=== PATIENT | male | born 1965 | race American Indian/Alaskan Native ===

== ENCOUNTER 2018-10-10 14:07 | Emergency (ER) | payer MEDICARE, OTHER ==
--- NOTE | 2018-10-10 14:28 | Emergency Department Report ---
Chief Complaint: Altered Mental Status Stated Complaint: AMS Time Seen by Provider: 10/10/18 14:22 - HPI History of Present Illness: This is a 53 y.o. male that left care home yesterday and not sure where he is. Patient was brought in by EMS wondering the streets. History of schizophrenia and bipolar. - ROS Review of Systems: AMS MSE screening note: Focused history and physical exam performed. Due to findings the following was ordered: Labs Main ED for further evaluation. ED Disposition for MSE Condition: Stable
[2018-10-10 15:20] LABS: Basophils % (Auto) 0.3 % (0.0-1.8); Eosinophils # (Auto) 0.1 K/mm3 (0.0-0.4); Hematocrit 35.3 % (35.5-45.6); Hemoglobin 11.6 gm/dl (11.8-15.2); Lymphocytes # (Auto) 1.5 K/mm3 (1.2-5.4); Lymphocytes % (Auto) 24.1 % (13.4-35.0); Mean Corpuscular HGB Conc 33 % (32-34); Mean Corpuscular Volume 86 fl (84-94); Monocytes # (Auto) 0.6 K/mm3 (0.0-0.8); Monocytes % (Auto) 9.9 % (0.0-7.3); Platelet Count 286 K/mm3 (140-440); Red Blood Count 4.11 M/mm3 (3.65-5.03); Red Cell Distribution Width 14.2 % (13.2-15.2)
[2018-10-10 15:39] LABS: BUN/Creatinine Ratio 10; Blood Urea Nitrogen 9 mg/dL (9-20); Calcium 8.2 mg/dL (8.4-10.2); Hemolysis Index 7
[2018-10-10 18:21] LABS: Bacteria,Urine 4+ /HPF (Negative); Bilirubin,Urine NEG (Negative); Blood,Urine NEG (Negative); Color,Urine Yellow (Yellow); Mucus,Urine FEW /HPF; Sperm,Urine 1+ /HPF (NP)
[2018-10-10 18:22] LABS: Amphetamine Screen,Urine PRESUMPTIVE NEGATIVE; Benzodiazepines Screen,Urine PRESUMPTIVE NEGATIVE; Cannabinoid Screen,Urine PRESUMPTIVE NEGATIVE; Cocaine Screen,Urine PRESUMPTIVE NEGATIVE; Methadone Screen,Urine PRESUMPTIVE NEGATIVE; Opiate Screen,Urine PRESUMPTIVE NEGATIVE
--- NOTE | 2018-10-10 19:17 | Emergency Department Report ---
HPI - General Chief Complaint: Altered Mental Status Time Seen by Provider: 10/10/18 14:22 - HPI HPI: [53 year old AA Male presents to the emergency Department via PD after he was found wandering around a gas station. Apparently the patient wandered away from his shelter earlier today or yesterday. When asked why he left he says that he was going to get help. I asked what he is trying to get help with and the patient says that he is having hallucinations and delusions. He admits to auditory and visual hallucinations but cannot give me any details about them. He denies any suicidal or homicidal ideations. He has a history of schizophrenia and admits to medication noncompliance for a while. ED Past Medical Hx - Past Medical History Hx Psychiatric Treatment: Yes (SCHZOPHENIA AND BIPOLAR) - Surgical History Past Surgical History?: No - Social History Smoking Status: Current Every Day Smoker Substance Use Type: None - Medications Home Medications: Home Medications Medication Instructions Recorded Confirmed Last Taken Type Unobtainable 10/11/18 10/11/18 Unknown History ED Review of Systems ROS: Stated complaint: AMS Other details as noted in HPI Comment: All other systems reviewed and negative Constitutional: denies: chills, fever Eyes: denies: eye pain, vision change ENT: denies: ear pain, throat pain Respiratory: denies: cough, shortness of breath Cardiovascular: denies: chest pain, palpitations Gastrointestinal: denies: abdominal pain, vomiting Genitourinary: denies: dysuria, discharge Musculoskeletal: denies: back pain, arthralgia Skin: denies: rash, lesions Neurological: denies: headache, weakness Psychiatric: auditory hallucinations, visual hallucinations. denies: homicidal thoughts, suicidal thoughts Physical Exam - Physical Exam Vital Signs: Vital Signs 10/10/18 14:23 Temperature 98.0 F Pulse Rate 94 H Respiratory 20 Rate Blood Pressure 104/67 O2 Sat by Pulse 98 Oximetry Physical Exam: GENERAL: The patient is well-developed well-nourished. HEENT: Normocephalic. Atraumatic. Patient has moist mucous membranes. EYES: Extraocular motions are intact. NECK: Supple. Trachea is midline. CHEST/LUNGS: Clear to auscultation. There is no respiratory distress noted. HEART/CARDIOVASCULAR: Regular. There is no tachycardia. There is no obvious murmur. ABDOMEN: Abdomen is soft, nontender. Patient has normal bowel sounds. There is no abdominal distention. SKIN: Skin is warm and dry. NEURO: The patient is awake, alert. The patient has normal speech. MUSCULOSKELETAL: There is no tenderness or deformity. There is no limitation range of motion. There is no evidence of acute injury. PSYCH: Patient is disorganized and has some tangential rambling thoughts. ED Course Vital Signs 10/10/18 14:23 Temperature 98.0 F Pulse Rate 94 H Respiratory 20 Rate Blood Pressure 104/67 O2 Sat by Pulse 98 Oximetry ED Medical Decision Making - Lab Data Result diagrams: 10/10/18 14:46 10/10/18 14:46 - Radiology Data Radiology results: report reviewed PROCEDURE: CT HEAD/BRAIN WO CON HISTORY: AMS FINDINGS: Unenhanced CT of the brain was performed and demonstrates no acute intracranial hemorrhage, extra-axial fluid collection, midline shift or mass effect. The ventricles and basal cisterns are not effaced. No acute infarct is seen. MRI may be considered if patient has persistent symptomatology. The mastoid air cells and middle ears appear clear. There is debris in both external auditory canals. There are old-appearing fractures of the right and left orbital floors. The visualized portion of paranasal sinuses appear clear. IMPRESSION: No acute intracranial hemorrhage This document is electronically signed by Margo Krishna MD., October 10 2018 08:46:24 PM ET Transcribed By: KENDY Dictated By: MARGO KRISHNA MD Electronically Authenticated By: MARGO KRISHNA MD Signed Date/Time: 10/10/182048 - Medical Decision Making When the patient got back to the emergency department he was found in the bathroom completely naked and then trying to expose himself to staff. We were able to get him clothed and into a room. Patient admits to auditory and visual hallucinations but denies any homicidal or suicidal ideations. Labs have been mostly unremarkable except for a mild urinary tract infection for which she will be started on Macrobid. Due to the fact that the patient is so disorganized and was found wandering, I obtained a CT scan of the head without contrast that did not show any bleed, shift, mass, ischemia or any other acute process. The patient has been made at 1013 secondary to what appears to be acute psychosis and appears medically clear for psychiatric placement. - Differential Diagnosis schizophrenia, schizoaffective, bipolar disorder, substance abuse Critical Care Time: No Critical care attestation.: If time is entered above; I have spent that time in minutes in the direct care of this critically ill patient, excluding procedure time. ED Disposition Clinical Impression: Acute psychosis Disposition: DC/TX-65 PSY HOSP/PSY UNIT Is pt being admited?: No Condition: Stable Referrals: RAFIA ELIZABETH MD [Primary Care Provider] - 3-5 Days Time of Disposition: 19:17
[2018-10-10] MEDS: MACROBID PO SCH ×2 (19:26→22:24)
--- NOTE | 2018-10-10 20:48 | Cat Scan Report ---
PROCEDURE: CT HEAD/BRAIN WO CON HISTORY: AMS FINDINGS: Unenhanced CT of the brain was performed and demonstrates no acute intracranial hemorrhage, extra-axial fluid collection, midline shift or mass effect. The ventricles and basal cisterns are no t effaced. No acute infarct is seen. MRI may be considered if patient has persistent symptomatology. The mastoid air cells and middle ears appear clear. There is debris in both external auditory canals. There are old-appearing fractures of the right and left orbital floors. The visualized portion of par anasal sinuses appear clear. IMPRESSION: No acute intracranial hemorrhage This document is electronically signed by Franck Krishna MD., October 10 2018 08:46:24 PM ET
[2018-10-11 09:40] VITALS: BP 122/85
[2018-10-11] MEDS: MACROBID PO SCH (11:05)
== END 2018-10-11 12:40 ==
LOC: ED 14:07
DX: F23 Brief psychotic disorder (principal); R44.0 Auditory hallucinations; R44.1 Visual hallucinations; F31.9 Bipolar disorder, unspecified; F17.200 Nicotine dependence, unspecified, uncomplicated
CPT/HCPCS: 36415; 70450; 80048; 80307; 81001; 85025; 99285; G0480; 80320

== ENCOUNTER 2020-06-06 16:31 | Inpatient (IN) | payer MEDICARE, OTHER ==
[2020-06-07] MEDS: traZODone 50 MG TAB PO SCH ×2 (03:55→21:20)
[2020-06-07] MEDS: MELATONIN 5 MG TAB PO SCH ×2 (03:56→21:20)
--- NOTE | 2020-06-07 07:31 | History and Physical Report ---
GP History & Physical - History of Present Illness Date of admission: 06/07/20 Date of Examination: 06/07/20 Reason for Admission: Danger to self, Impaired reality testing History of Present Illness: HPI Patient is a 55-year-old single without children, currently unemployed on disability income -[place] male who currently resides in a senior care with past psychiatric history of bipolar and schizophrenia who presented from [facility] for acute psychiatric stabilization after being initially admitted for accidental ingestion of rat poison. According to the transfer notes, patient was uncooperative very irritable and has history of aggression. Today patient presents with similar behaviors, refused to take medications, did not want to participate in this initial evaluation, says he jus t want to eat his food and go back to his room, in a very loud tone accompanied by an irritable affect PAST PSYCHIATRIC HISTORY: Diagnoses: Bipolar and schizophrenia Suicide attempts or Self-harm behavior: None reported Prior psychiatric hospitalizations; yes Substance Abuse history: Crack cocaine Previous psychiatric medications tried: Yes Outpatient treatment: No response PAST MEDICAL HISTORY: No significant past medical history Family Psychiatric History: None reported or documented SOCIAL HISTORY Marital Status: Single Living Arrangements: [facility] Employment Status: Unemployed on [employer] Access to guns/weapons: None reported Education: High school History of Abuse: None reported Legal History: None reported REVIEW OF SYSTEMS Constitutional: Negative for weight loss ENT: Negative for stridor Respiratory: Negative for cough or hemoptysis All other systems reviewed and are negative MENTAL STATUS EXAMINATION General Appearance and Behavior: Age appropriate, good hygiene, not wearing appropriate clothes, good eye contact, uncooperative and irritable with questioning. Cooperation: Participating but withdrawn and guarded Psychomotor Behavior: Psychomotor agitation Mood: Good Affect and affective range: euthymic, euphoric, irritable Thought Process:Circumstantial, Illogical, Thought Content: Flight of ideas, Illogical, Grandiose, Speech: pressured, loud volume at times Intellectual Functioning: Average Suicidal Ideation: Denies SI Homicidal Ideation: Denies HIl Impulse Control: Impaired Insight and Judgment: Limited insight and judgment Memory: Normal, Attention: Divided attention impaired Orientation: Alert, oriented, Assessment and Plan - Psychiatric problem (1) Schizoaffective disorder, bipolar type Current Visit: Yes Status: Acute Treatment Plan Resume home medications, Risperdal increased to 2 mg twice daily Patient admitted for inpatient psychiatric evaluation, medication adjustment and close monitoring The patient's behavior, mood, sleep and appetite will be closely monitored. Patient enrolled in individual and group therapeutic sessions and encouraged to attend. Patient provided with a safe and structured environment. Patient's physical health needs will be addressed by the Hospitalist. Hospitalist Consulted Labs including CBC, CMP, Lipid profile and Hemoglobin A1C levels ordered for baseline reference Social Assessment will be completed and the Ceramic Chemist will work with patient and family to ensure a suitable and safe disposition Medication adjustment will be made as clinically indicated Usual Wellness Mandaeism/Preservation: - Start Trazodone 50 mg po QHS & 50 mg po QHS PRN between 10 PM & 2 AM for insomnia - Start Melatonin 5 mg po QHS to promote circadian rhythm - Start [place]-3 for brain health, reduce impulsivity, and as adjunctive treatment for mood disorder, continue upon discharge given overall benefits. - Start B1 prophylaxis with 200 mg po for 5 days The patient agreed on the treatment plan, understood the risk, benefit, alternative treatment, potential consequence of no treatment, and gave informed consent. Initial Certification Inpatient psych services: I certify that the inpatient psychiatric services are required for treatment that could reasonably be expected to improve the patient's condition. Estimated days: 7 Post hospital care: primary care provider, psychiatric provider Legal Status: Voluntary Patient Problems: Current Active Problems Schizoaffective disorder, bipolar type (Acute) Reaction to Hospitalization: Accepting Medications and Allergies Allergies Allergy/AdvReac Type Severity Reaction Status Date / Time No Known Allergies Allergy Unverified 06/06/20 16:55 Home Medications Medication Instructions Recorded Confirmed Last Taken Type Depakote Dr 1,000 mg PO HS 06/07/20 06/07/[address] 500 mg PO DAILY 06/07/20 06/07/20 Unknown History Melatonin 3 mg PO HS 06/07/20 06/07/20 Unknown History Prozac 20 mg PO DAILY 06/07/20 06/07/20 Unknown History RisperDAL 2 mg PO HS 06/07/20 06/07/20 Unknown History Active Meds: Active Medications Melatonin (Melatonin) 5 mg PO QHS [facility] Last Admin: 06/07/20 03:56 Dose: Not Given Documented by: Trazodone HCl (Desyrel) 50 mg PO QHS [facility] Last Admin: 06/07/20 03:55 Dose: Not Given Documented by: Ziprasidone (Geodon) 10 mg IM BID [facility] Stop: 06/07/20 22:01 Results - Results Labs/Vitals: Laboratory Last Values POC Glucose 93 mg/dL (70-105) 06/07/20 03:46 Last Vital Signs Temp 97.7 F 06/07/20 03:54 Pulse 66 06/07/20 03:54 Resp 20 06/07/20 03:54 BP 117/77 06/07/20 03:54 Pulse Ox 99 06/07/20 03:54 Physical Examination - Constitutional Vitals: Vital Signs Temp Pulse Resp BP Pulse Ox 97.7 F 66 20 117/77 99 06/07/20 03:54 06/07/20 03:54 06/07/20 03:54 06/07/20 03:54 06/07/20 03:54 Temperature -Last 24 Hours Temperature 97.7 F Mental Status Exam - Vital signs Last Vital Signs Temp 97.7 F 06/07/20 03:54 Pulse 66 06/07/20 03:54 Resp 20 06/07/20 03:54 BP 117/77 06/07/20 03:54 Pulse Ox 99 06/07/20 03:54 Assessment and Plan - Psychiatric problem (1) Schizoaffective disorder, bipolar type Current Visit: Yes Status: Acute Physician Certification - Certification Statement Physician Certification Statement: This is an acknowledgement statement that MIGUEL ÁNGEL ULLOA is a 55 year old M who requires inpatient psychiatric admission for treatment which could reasonably be expected to improve the patient's condition for Estimated period of time patient will need to remain in the hospital: [ ] Plan for post-hospital care: [ ]
[2020-06-07] MEDS ORDERED: LORazepam 2 MG/ML VIAL IM PRN (07:54)
[2020-06-07] MEDS ORDERED: ZIPRASIDONE MESYLATE 20 MG VIAL IM PRN (07:54)
[2020-06-07] MEDS ORDERED: WATER FOR INJ Sterile (PF) 10 ML ONE (09:54)
[2020-06-07] MEDS ORDERED: ZIPRASIDONE MESYLATE 20 MG VIAL IM SCH (10:00)
--- NOTE | 2020-06-07 12:12 | Consultation ---
History of Present Illness - Reason for Consult Consult date: 06/06/20 Requesting physician: EULOGIO MONDRAGON - History of Present Illness 55 YO Male with Nicotine Dependence, Bipolar Disorder, Schizophrenia admitted to [facility] for Psychiatric stabilization. Consult placed by Dr. Mondragon for medical management. Patient seen and evaluated in the recreation room. Patient resting comfortably. Patient denies fever, chills, chest pain, palpitations, productive cough, skin rash, recent ill contacts, or known exposure to COVID-19. No reported nursing events. Past History Past Medical History: other (See HPI) Past Surgical History: No surgical history Social history: single, smoking Family history: no significant family history (Reviewed) Medications and Allergies Allergies Allergy/AdvReac Type Severity Reaction Status Date / Time No Known Allergies Allergy Unverified 06/06/20 16:55 Home Medications Medication Instructions Recorded Confirmed Last Taken Type Depakote Dr 1,000 mg PO HS 06/07/20 06/07/[address] 500 mg PO DAILY 06/07/20 06/07/20 Unknown History Melatonin 3 mg PO HS 06/07/20 06/07/20 Unknown History Prozac 20 mg PO DAILY 06/07/20 06/07/20 Unknown History RisperDAL 2 mg PO HS 06/07/20 06/07/20 Unknown History Active Meds: Active Medications Divalproex Sodium (Depakote Dr) 500 mg PO BID [facility] Fluoxetine HCl (Prozac) 20 mg PO DAILY [facility] Lorazepam (Ativan) 2 mg IM Q4HR PRN PRN Reason: Agitation Last Admin: 06/07/20 10:38 Dose: 2 mg Documented by: Melatonin (Melatonin) 5 mg PO QHS [facility] Last Admin: 06/07/20 03:56 Dose: Not Given Documented by: Risperidone (Risperdal) 2 mg PO BID [facility] Trazodone HCl (Desyrel) 50 mg PO QHS [facility] Last Admin: 06/07/20 03:55 Dose: Not Given Documented by: Ziprasidone (Geodon) 15 mg IM Q4H PRN PRN Reason: Agitation Last Admin: 06/07/20 10:37 Dose: 15 mg Documented by: Review of Systems Constitutional: no weight loss, no weight gain, no fever, no chills Ears, nose, mouth and throat: no ear pain, no ear discharge, no tinnitis, no decreased hearing, no nose pain Cardiovascular: no chest pain, no orthopnea, no palpitations, no rapid/irregular heart beat Respiratory: no cough, no cough with sputum, no excessive sputum, no hemoptysis Gastrointestinal: no nausea, no vomiting, no diarrhea, no constipation, no change in bowel habits Genitourinary Male: no hematuria, no flank pain, no discharge, no urinary frequency, no urinary hesitancy Rectal: no pain, no incontinence Musculoskeletal: no neck stiffness, no shooting arm pain, no arm numbness/tingling, no low back pain Integumentary: no rash, no pruritis, no redness, no sores, no wounds Neurological: no head injury, no transient paralysis, no paralysis, no parathesias, no tingling Psychiatric: no anxiety, no change in appetite, no suicidal ideation Endocrine: no cold intolerance, no heat intolerance, no excessive thirst, no polydipsia Hematologic/Lymphatic: no easy bruising, no easy bleeding Allergic/Immunologic: no urticaria, no wheezing Exam - Constitutional Vitals: Temp Pulse Resp BP Pulse Ox 97.9 F 74 18 110/76 98 06/07/20 08:52 06/07/20 08:52 06/07/20 08:52 06/07/20 11:23 06/07/20 08:52 General appearance: Present: no acute distress, well-nourished - EENT Eyes: Present: PERRL ENT: hearing intact, clear oral mucosa - Neck Neck: Present: supple, normal ROM - Respiratory Respiratory effort: normal Respiratory: bilateral: CTA - Cardiovascular Heart Sounds: Present: S1 & S2. Absent: rub, click - Extremities Extremities: pulses symmetrical, No edema Peripheral Pulses: within normal limits - Abdominal General gastrointestinal: Present: soft, non-tender, non-distended, normal bowel sounds Male genitourinary: Present: normal - Integumentary Integumentary: Present: clear, warm, dry - Musculoskeletal Musculoskeletal: gait normal, strength equal bilaterally - Psychiatric Psychiatric: cooperative - Neurologic Neurologic: CNII-XII intact, moves all extremities Assessment and Plan - Patient Problems (1) Schizoaffective disorder, bipolar type Current Visit: Yes Status: Acute Plan to address problem: Supportive care, continue current management, cognitive behavioral therapy. As per primary team (2) Nicotine dependence Current Visit: Yes Status: Acute Qualifiers: Nicotine product type: cigarettes Substance use status: in withdrawal Qualified Code(s): F17.213 - Nicotine dependence, cigarettes, with withdrawal Plan to address problem: Smoking cessation counseling, supportive care, behavior change counseling, +15 minutes.
[2020-06-07] MEDS: FLUoxetine 20 MG CAP PO SCH (17:04)
[2020-06-07] MEDS: risperiDONE 1 MG TAB PO SCH ×2 (17:05→21:20)
[2020-06-07] MEDS: DIVALPROEX DR 500 MG TAB PO SCH ×2 (17:06→21:20)
[2020-06-08 06:07] LABS: Basophils % (Auto) 0.4 % (0.0-1.8); Eosinophils # (Auto) 0.1 K/mm3 (0.0-0.4); Eosinophils % (Auto) 1.8 % (0.0-4.3); Hematocrit 38.1 % (35.5-45.6); Hemoglobin 12.6 gm/dl (11.8-15.2); Lymphocytes # (Auto) 2.5 K/mm3 (1.2-5.4); Mean Corpuscular HGB Conc 33 % (32-34); Mean Corpuscular Volume 86 fl (84-94); Monocytes # (Auto) 0.3 K/mm3 (0.0-0.8); Monocytes % (Auto) 5.8 % (0.0-7.3); Platelet Count 170 K/mm3 (140-440); Red Blood Count 4.45 M/mm3 (3.65-5.03)
[2020-06-08 06:16] LABS: Alanine Aminotransferase 13 units/L (7-56); Albumin 3.7 g/dL (3.9-5); BUN/Creatinine Ratio 9; Blood Urea Nitrogen 9 mg/dL (9-20); Calcium 9.2 mg/dL (8.4-10.2); Chol/HDL Ratio 2.84 %; HDL Cholesterol 50 mg/dL (40-59); Hemolysis Index 5; LDL Cholesterol,Direct 89 mg/dL (50-130)
--- NOTE | 2020-06-08 07:38 | Progress Note ---
Subjective Date of service: 06/08/20 Principal diagnosis: Schizoaffective disorder, bipolar type Subjective Comment: Psych Nurse: [id number] Pt. rested on the recliner in the activity room for about 4hrs, awake and , ate his dinner, coherent and took his po meds of which the PA to the Psychiatrist was are. He said if the pt agrees to take his meds later today to give to the pt. Pt. frequently asking for cookies and ice cream. Pt was educated on the importance of eating healthy. Pt. pleasant, he said "thank you, you are a very nice person" commending this repairer typewriter. Pt. reminder of fall precaution. Will continue to monitor. Psych Progress: Mr Velazco seen this AM in room, improved cooperation and reduced irritablity noted. Patient reports doing fine, says he has been compliant with his medications, apologized for yesterday. Endorses a good night rest, stable appetite and denies any suicidal thoughts at this moment. Reason to continue inpatient psychiatric hospitalization: Patient had to be given PRN meds due to initial aggression on presentation yesterday, today he is medication compliant, will continue to observe for mood stability. REVIEW OF SYSTEMS Constitutional: Negative for weight loss ENT: Negative for stridor Respiratory: Negative for cough or hemoptysis All other systems reviewed and are negative MENTAL STATUS EXAMINATION General Appearance and Behavior: Age appropriate, good hygiene, not wearing appropriate clothes, good eye contact, cooperative and polite with questioning. Cooperation: Participating/engaged Psychomotor Behavior: Psychomotor normal Mood: Good Affect and affective range: congruent with mood Thought Process:logical Thought Content: within reality Speech: pressured, loud volume at times Intellectual Functioning: Average Suicidal Ideation: Denies SI Homicidal Ideation: Denies HIl Impulse Control: Impaired Insight and Judgment: Limited insight and judgment Memory: Normal, Attention: attention intact Orientation: Alert, oriented, Assessment and Plan - Psychiatric problem (1) Schizoaffective disorder, bipolar type Current Visit: Yes Status: Acute Treatment Plan Continue current medication regimen Patient admitted for inpatient psychiatric evaluation, medication adjustment and close monitoring The patient's behavior, mood, sleep and appetite will be closely monitored. Patient enrolled in individual and group therapeutic sessions and encouraged to attend. Patient provided with a safe and structured environment. Patient's physical health needs will be addressed by the Hospitalist. Hospitalist Consulted Labs including CBC, CMP, Lipid profile and Hemoglobin A1C levels ordered for baseline reference Social Assessment will be completed and the Regulatory Scientist will work with patient and family to ensure a suitable and safe disposition Medication adjustment will be made as clinically indicated Usual Wellness Hindu/Preservation: - Start Trazodone 50 mg po QHS & 50 mg po QHS PRN between 10 PM & 2 AM for insomnia - Start Melatonin 5 mg po QHS to promote circadian rhythm - Start [place]-3 for brain health, reduce impulsivity, and as adjunctive treatment for mood disorder, continue upon discharge given overall benefits. - Start B1 prophylaxis with 200 mg po for 5 days The patient agreed on the treatment plan, understood the risk, benefit, alternative treatment, potential consequence of no treatment, and gave informed consent. Initial Certification Inpatient psych services: I certify that the inpatient psychiatric services are required for treatment that could reasonably be expected to improve the patient's condition. Estimated days 6 Post hospital care: primary care provider, psychiatric provider Assessment and Plan - Patient Problems (1) Schizoaffective disorder, bipolar type Current Visit: Yes Status: Acute Medications and Allergies Allergies Allergy/AdvReac Type Severity Reaction Status Date / Time No Known Allergies Allergy Unverified 06/06/20 16:55 Home Medications Medication Instructions Recorded Confirmed Last Taken Type Depakote Dr 1,000 mg PO HS 06/07/20 06/07/[address] 500 mg PO DAILY 06/07/20 06/07/20 Unknown History Melatonin 3 mg PO HS 06/07/20 06/07/20 Unknown History Prozac 20 mg PO DAILY 06/07/20 06/07/20 Unknown History RisperDAL 2 mg PO HS 06/07/20 06/07/20 Unknown History Active Meds: Active Medications Divalproex Sodium (Depakote Dr) 500 mg PO BID [facility] Last Admin: 06/07/20 21:20 Dose: 500 mg Documented by: Fluoxetine HCl (Prozac) 20 mg PO DAILY [facility] Last Admin: 06/07/20 17:04 Dose: 20 mg Documented by: Lorazepam (Ativan) 2 mg IM Q4HR PRN PRN Reason: Agitation Last Admin: 06/07/20 10:38 Dose: 2 mg Documented by: Melatonin (Melatonin) 5 mg PO QHS [facility] Last Admin: 06/07/20 21:20 Dose: 5 mg Documented by: Risperidone (Risperdal) 2 mg PO BID [facility] Last Admin: 06/07/20 21:20 Dose: 2 mg Documented by: Trazodone HCl (Desyrel) 50 mg PO QHS [facility] Last Admin: 06/07/20 21:20 Dose: 50 mg Documented by: Ziprasidone (Geodon) 15 mg IM Q4H PRN PRN Reason: Agitation Last Admin: 06/07/20 10:37 Dose: 15 mg Documented by: Results - Results Labs/Vitals: Laboratory Last Values WBC 6.1 K/mm3 (4.5-11.0) 06/08/20 05:45 RBC 4.45 M/mm3 (3.65-5.03) 06/08/20 05:45 Hgb 12.6 gm/dl (11.8-15.2) 06/08/20 05:45 Hct 38.1 % (35.5-45.6) 06/08/20 05:45 MCV 86 fl (84-94) 06/08/20 05:45 MCH 28 pg (28-32) 06/08/20 05:45 MCHC 33 % (32-34) 06/08/20 05:45 RDW 14.0 % (13.2-15.2) 06/08/20 05:45 Plt Count 170 K/mm3 (140-440) 06/08/20 05:45 Lymph % (Auto) 41.0 % (13.4-35.0) H 06/08/20 05:45 [place] % (Auto) 5.8 % (0.0-7.3) 06/08/20 05:45 Eos % (Auto) 1.8 % (0.0-4.3) 06/08/20 05:45 Baso % (Auto) 0.4 % (0.0-1.8) 06/08/20 05:45 Lymph # (Auto) 2.5 K/mm3 (1.2-5.4) 06/08/20 05:45 [place] # (Auto) 0.3 K/mm3 (0.0-0.8) 06/08/20 05:45 Eos # (Auto) 0.1 K/mm3 (0.0-0.4) 06/08/20 05:45 Baso # (Auto) 0.0 K/mm3 (0.0-0.1) 06/08/20 05:45 Seg Neutrophils % 51.0 % (40.0-70.0) 06/08/20 05:45 Seg Neutrophils # 3.1 K/mm3 (1.8-7.7) 06/08/20 05:45 Sodium 141 mmol/L (137-145) 06/08/20 05:45 Potassium 4.4 mmol/L (3.6-5.0) 06/08/20 05:45 Chloride 104.9 mmol/L (98-107) 06/08/20 05:45 Carbon Dioxide 27 mmol/L (22-30) 06/08/20 05:45 Anion Gap 14 mmol/L 06/08/20 05:45 BUN 9 mg/dL (9-20) 06/08/20 05:45 Creatinine 1.0 mg/dL (0.8-1.3) 06/08/20 05:45 Estimated GFR > 60 ml/min 06/08/20 05:45 BUN/Creatinine Ratio 9 % 06/08/20 05:45 Glucose 93 mg/dL (75-100) 06/08/20 05:45 POC Glucose 93 mg/dL (70-105) 06/07/20 03:46 Calcium 9.2 mg/dL (8.4-10.2) 06/08/20 05:45 Total Bilirubin < 0.20 mg/dL (0.1-1.2) 06/08/20 05:45 AST 14 units/L (5-40) 06/08/20 05:45 ALT 13 units/L (7-56) 06/08/20 05:45 Alkaline Phosphatase 62 units/L (35-129) 06/08/20 05:45 Total Protein 6.2 g/dL (6.3-8.2) L 06/08/20 05:45 Albumin 3.7 g/dL (3.9-5) L 06/08/20 05:45 Albumin/Globulin Ratio 1.5 % 06/08/20 05:45 Triglycerides 72 mg/dL (2-149) 06/08/20 05:45 Cholesterol 142 mg/dL (50-199) 06/08/20 05:45 LDL Cholesterol Direct 89 mg/dL (50-130) 06/08/20 05:45 HDL Cholesterol 50 mg/dL (40-59) 06/08/20 05:45 Cholesterol/HDL Ratio 2.84 % 06/08/20 05:45 TSH 1.590 mlU/mL (0.270-4.200) 06/08/20 05:45 Last Vital Signs Temp 97.6 F 06/07/20 22:00 Pulse 97 H 06/07/20 22:00 Resp 16 06/07/20 22:00 BP 98/66 06/07/20 22:00 Pulse Ox 99 06/07/20 22:00
[2020-06-08] MEDS: DIVALPROEX DR 500 MG TAB PO SCH ×2 (11:20→21:15)
[2020-06-08] MEDS: risperiDONE 1 MG TAB PO SCH ×2 (11:20→21:15)
[2020-06-08] MEDS: FLUoxetine 20 MG CAP PO SCH (11:20)
[2020-06-08] MEDS: MELATONIN 5 MG TAB PO SCH (21:15)
[2020-06-08] MEDS: traZODone 50 MG TAB PO SCH (21:15)
--- NOTE | 2020-06-09 07:39 | Progress Note ---
Subjective Date of service: 06/09/20 Principal diagnosis: Schizoaffective disorder, bipolar type Subjective Comment: Psych Nurse: pt spent his evening in bed resting, out of room to the activity room for snack, pt is alert and oriented x3, calm and cooperative, able to make needs known, no outburst, medication compliant, good appetite,denies SI/HI, denies A/V/H, no complaints voiced, no distress noted, will continue to monitor for safety. Psych Progress: Patient seen this AM, reports goood sleep, denies SI, HI and AVH. Medication compliant Reason to continue inpatient psychiatric hospitalization: No behavioral disturbances reported, medication compliant, will continue to observe for mood stability and plan for safety discharge. REVIEW OF SYSTEMS Constitutional: Negative for weight loss ENT: Negative for stridor Respiratory: Negative for cough or hemoptysis All other systems reviewed and are negative MENTAL STATUS EXAMINATION General Appearance and Behavior: Age appropriate, good hygiene, not wearing appropriate clothes, good eye contact, cooperative and polite with questioning. Cooperation: Participating/engaged Psychomotor Behavior: Psychomotor normal Mood: Good Affect and affective range: congruent with mood Thought Process:logical Thought Content: within reality Speech: regular rate and rythm Intellectual Functioning: Average Suicidal Ideation: Denies SI Homicidal Ideation: Denies HIl Impulse Control: Impaired Insight and Judgment: Limited insight and judgment Memory: Normal, Attention: attention intact Orientation: Alert, oriented, Assessment and Plan - Psychiatric problem (1) Schizoaffective disorder, bipolar type Current Visit: Yes Status: Acute Treatment Plan Continue current medication regimen Patient admitted for inpatient psychiatric evaluation, medication adjustment and close monitoring The patient's behavior, mood, sleep and appetite will be closely monitored. Patient enrolled in individual and group therapeutic sessions and encouraged to attend. Patient provided with a safe and structured environment. Patient's physical health needs will be addressed by the Hospitalist. Hospitalist Consulted Labs including CBC, CMP, Lipid profile and Hemoglobin A1C levels ordered for baseline reference Social Assessment will be completed and the Remnants Cutter will work with patient and family to ensure a suitable and safe disposition Medication adjustment will be made as clinically indicated Usual Wellness Presybeterian/Preservation: - Start Trazodone 50 mg po QHS & 50 mg po QHS PRN between 10 PM & 2 AM for insomnia - Start Melatonin 5 mg po QHS to promote circadian rhythm - Start [place]-3 for brain health, reduce impulsivity, and as adjunctive treatment for mood disorder, continue upon discharge given overall benefits. - Start B1 prophylaxis with 200 mg po for 5 days The patient agreed on the treatment plan, understood the risk, benefit, alternative treatment, potential consequence of no treatment, and gave informed consent. Initial Certification Inpatient psych services: I certify that the inpatient psychiatric services are required for treatment that could reasonably be expected to improve the patient's condition. Estimated days 6 Post hospital care: primary care provider, psychiatric provider Assessment and Plan - Patient Problems (1) Schizoaffective disorder, bipolar type Current Visit: Yes Status: Acute Medications and Allergies Allergies Allergy/AdvReac Type Severity Reaction Status Date / Time No Known Allergies Allergy Unverified 06/06/20 16:55 Home Medications Medication Instructions Recorded Confirmed Last Taken Type Depakote Dr 1,000 mg PO 06/07/20 06/07/[address] 500 mg PO DAILY 06/07/20 06/07/20 Unknown History Melatonin 3 mg PO HS 06/07/20 06/07/20 Unknown History Prozac 20 mg PO DAILY 06/07/20 06/07/20 Unknown History RisperDAL 2 mg PO HS 06/07/20 06/07/20 Unknown History Active Meds: Active Medications Divalproex Sodium (Depakote Dr) 500 mg PO BID [facility] Last Admin: 06/08/20 21:15 Dose: 500 mg Documented by: Fluoxetine HCl (Prozac) 20 mg PO DAILY [facility] Last Admin: 06/08/20 11:20 Dose: 20 mg Documented by: Lorazepam (Ativan) 2 mg IM Q4HR PRN PRN Reason: Agitation Last Admin: 06/07/20 10:38 Dose: 2 mg Documented by: Melatonin (Melatonin) 5 mg PO QHS [facility] Last Admin: 06/08/20 21:15 Dose: 5 mg Documented by: Risperidone (Risperdal) 2 mg PO BID [facility] Last Admin: 06/08/20 21:15 Dose: 2 mg Documented by: Trazodone HCl (Desyrel) 50 mg PO QHS [facility] Last Admin: 06/08/20 21:15 Dose: 50 mg Documented by: Ziprasidone (Geodon) 15 mg IM Q4H PRN PRN Reason: Agitation Last Admin: 06/07/20 10:37 Dose: 15 mg Documented by: Results - Results Labs/Vitals: Laboratory Last Values WBC 6.1 K/mm3 (4.5-11.0) 06/08/20 05:45 RBC 4.45 M/mm3 (3.65-5.03) 06/08/20 05:45 Hgb 12.6 gm/dl (11.8-15.2) 06/08/20 05:45 Hct 38.1 % (35.5-45.6) 06/08/20 05:45 MCV 86 fl (84-94) 06/08/20 05:45 MCH 28 pg (28-32) 06/08/20 05:45 MCHC 33 % (32-34) 06/08/20 05:45 RDW 14.0 % (13.2-15.2) 06/08/20 05:45 Plt Count 170 K/mm3 (140-440) 06/08/20 05:45 Lymph % (Auto) 41.0 % (13.4-35.0) H 06/08/20 05:45 [place] % (Auto) 5.8 % (0.0-7.3) 06/08/20 05:45 Eos % (Auto) 1.8 % (0.0-4.3) 06/08/20 05:45 Baso % (Auto) 0.4 % (0.0-1.8) 06/08/20 05:45 Lymph # (Auto) 2.5 K/mm3 (1.2-5.4) 06/08/20 05:45 [place] # (Auto) 0.3 K/mm3 (0.0-0.8) 06/08/20 05:45 Eos # (Auto) 0.1 K/mm3 (0.0-0.4) 06/08/20 05:45 Baso # (Auto) 0.0 K/mm3 (0.0-0.1) 06/08/20 05:45 Seg Neutrophils % 51.0 % (40.0-70.0) 06/08/20 05:45 Seg Neutrophils # 3.1 K/mm3 (1.8-7.7) 06/08/20 05:45 Sodium 141 mmol/L (137-145) 06/08/20 05:45 Potassium 4.4 mmol/L (3.6-5.0) 06/08/20 05:45 Chloride 104.9 mmol/L (98-107) 06/08/20 05:45 Carbon Dioxide 27 mmol/L (22-30) 06/08/20 05:45 Anion Gap 14 mmol/L 06/08/20 05:45 BUN 9 mg/dL (9-20) 06/08/20 05:45 Creatinine 1.0 mg/dL (0.8-1.3) 06/08/20 05:45 Estimated GFR > 60 ml/min 06/08/20 05:45 BUN/Creatinine Ratio 9 % 06/08/20 05:45 Glucose 93 mg/dL (75-100) 06/08/20 05:45 POC Glucose 93 mg/dL (70-105) 06/07/20 03:46 Calcium 9.2 mg/dL (8.4-10.2) 06/08/20 05:45 Total Bilirubin < 0.20 mg/dL (0.1-1.2) 06/08/20 05:45 AST 14 units/L (5-40) 06/08/20 05:45 ALT 13 units/L (7-56) 06/08/20 05:45 Alkaline Phosphatase 62 units/L (35-129) 06/08/20 05:45 Total Protein 6.2 g/dL (6.3-8.2) L 06/08/20 05:45 Albumin 3.7 g/dL (3.9-5) L 06/08/20 05:45 Albumin/Globulin Ratio 1.5 % 06/08/20 05:45 Triglycerides 72 mg/dL (2-149) 06/08/20 05:45 Cholesterol 142 mg/dL (50-199) 06/08/20 05:45 LDL Cholesterol Direct 89 mg/dL (50-130) 06/08/20 05:45 HDL Cholesterol 50 mg/dL (40-59) 06/08/20 05:45 Cholesterol/HDL Ratio 2.84 % 06/08/20 05:45 TSH 1.590 mlU/mL (0.270-4.200) 06/08/20 05:45 Last Vital Signs Temp 97.7 F 06/08/20 22:00 Pulse 80 06/08/20 22:00 Resp 18 06/08/20 22:00 BP 101/63 06/08/20 22:00 Pulse Ox 98 06/08/20 22:00
[2020-06-09] MEDS: FLUoxetine 20 MG CAP PO SCH (09:31)
[2020-06-09] MEDS: risperiDONE 1 MG TAB PO SCH ×2 (09:31→21:15)
[2020-06-09] MEDS: DIVALPROEX DR 500 MG TAB PO SCH ×2 (09:31→21:15)
[2020-06-09] MEDS: traZODone 50 MG TAB PO SCH (21:15)
[2020-06-09] MEDS: MELATONIN 5 MG TAB PO SCH (21:15)
[2020-06-10] MEDS: DIVALPROEX DR 500 MG TAB PO SCH ×2 (09:35→21:17)
[2020-06-10] MEDS: risperiDONE 1 MG TAB PO SCH ×2 (09:35→21:16)
[2020-06-10] MEDS ORDERED: FLUoxetine 10 MG TAB PO SCH (10:00)
--- NOTE | 2020-06-10 11:26 | Progress Note ---
Subjective Date of service: 06/10/20 Principal diagnosis: Schizoaffective disorder, bipolar type Subjective Comment: During my interview with the patient today, he is a/o x 2. He says he is "depressed." He makes poor eye contact. The patient denies SI/HI, but it's unclear if the patient is being forthcoming. He first tells me that "he was trying to kill" himself. He then says "it was an accident." Reason for continued inpatient treatment: The patient continues to be depressed and had a recent suicidal attempt. The patient appears to be not forthcoming if he currently feels that way. REVIEW OF SYSTEMS Constitutional: Negative for weight loss ENT: Negative for stridor Respiratory: Negative for cough or hemoptysis All other systems reviewed and are negative MENTAL STATUS EXAMINATION General Appearance and Behavior: Age appropriate, good hygiene, not wearing appropriate clothes, poor eye contact, cooperative and polite with questioning. Cooperation: Participating/engaged Psychomotor Behavior: Psychomotor normal Mood: "depressed" Affect and affective range: congruent with mood Thought Process:logical Thought Content: within reality Speech: regular rate and rhythm Intellectual Functioning: Average Suicidal Ideation: Denies, possibly not forthcoming Homicidal Ideation: Denies HIl Impulse Control: Impaired Insight and Judgment: Limited insight and judgment Memory: Normal, Attention: attention intact Orientation: Alert, oriented, Assessment and Plan (1) Schizoaffective disorder, bipolar type Current Visit: Yes Status: Acute Treatment Plan Patient admitted for inpatient psychiatric evaluation, medication adjustment and close monitoring The patient's behavior, mood, sleep and appetite will be closely monitored. Patient enrolled in individual and group therapeutic sessions and encouraged to attend. Patient provided with a safe and structured environment. Patient's physical health needs will be addressed by the Hospitalist. Hospitalist Consulted Labs including CBC, CMP, Lipid profile and Hemoglobin A1C levels ordered for baseline reference Social Assessment will be completed and the Billing Manager will work with patient and family to ensure a suitable and safe disposition Medication adjustment will be made as clinically indicated Increased Prozac 30mg po daily Usual Wellness Alevism/Preservation: - Start Trazodone 50 mg po QHS & 50 mg po QHS PRN between 10 PM & 2 AM for insomnia - Start Melatonin 5 mg po QHS to promote circadian rhythm - Start [place]-3 for brain health, reduce impulsivity, and as adjunctive treatment for mood disorder, continue upon discharge given overall benefits. - Start B1 prophylaxis with 200 mg po for 5 days The patient agreed on the treatment plan, understood the risk, benefit, alternative treatment, potential consequence of no treatment, and gave informed consent. Estimated days: 4 Post hospital care: primary care provider, psychiatric provider Medications and Allergies Allergies Allergy/AdvReac Type Severity Reaction Status Date / Time No Known Allergies Allergy Unverified 06/06/20 16:55 Home Medications Medication Instructions Recorded Confirmed Last Taken Type Depakote Dr 1,000 mg PO HS 06/07/20 06/07/[address] 500 mg PO DAILY 06/07/20 06/07/20 Unknown History Melatonin 3 mg PO HS 06/07/20 06/07/20 Unknown History Prozac 20 mg PO DAILY 06/07/20 06/07/20 Unknown History RisperDAL 2 mg PO HS 06/07/20 06/07/20 Unknown History Active Meds: Active Medications Divalproex Sodium (Depakote Dr) 500 mg PO BID [facility] Last Admin: 06/10/20 09:35 Dose: 500 mg Documented by: Fluoxetine HCl (Prozac) 30 mg PO QDAY [facility] Last Admin: 06/10/20 09:38 Dose: 30 mg Documented by: Lorazepam (Ativan) 2 mg IM Q4HR PRN PRN Reason: Agitation Last Admin: 06/07/20 10:38 Dose: 2 mg Documented by: Melatonin (Melatonin) 5 mg PO QHS [facility] Last Admin: 06/09/20 21:15 Dose: 5 mg Documented by: Risperidone (Risperdal) 2 mg PO BID [facility] Last Admin: 06/10/20 09:35 Dose: 2 mg Documented by: Trazodone HCl (Desyrel) 50 mg PO QHS [facility] Last Admin: 06/09/20 21:15 Dose: 50 mg Documented by: Ziprasidone (Geodon) 15 mg IM Q4H PRN PRN Reason: Agitation Last Admin: 06/07/20 10:37 Dose: 15 mg Documented by: Results - Results Labs/Vitals: Laboratory Last Values WBC 6.1 K/mm3 (4.5-11.0) 06/08/20 05:45 RBC 4.45 M/mm3 (3.65-5.03) 06/08/20 05:45 Hgb 12.6 gm/dl (11.8-15.2) 06/08/20 05:45 Hct 38.1 % (35.5-45.6) 06/08/20 05:45 MCV 86 fl (84-94) 06/08/20 05:45 MCH 28 pg (28-32) 06/08/20 05:45 MCHC 33 % (32-34) 06/08/20 05:45 RDW 14.0 % (13.2-15.2) 06/08/20 05:45 Plt Count 170 K/mm3 (140-440) 06/08/20 05:45 Lymph % (Auto) 41.0 % (13.4-35.0) H 06/08/20 05:45 [place] % (Auto) 5.8 % (0.0-7.3) 06/08/20 05:45 Eos % (Auto) 1.8 % (0.0-4.3) 06/08/20 05:45 Baso % (Auto) 0.4 % (0.0-1.8) 06/08/20 05:45 Lymph # (Auto) 2.5 K/mm3 (1.2-5.4) 06/08/20 05:45 [place] # (Auto) 0.3 K/mm3 (0.0-0.8) 06/08/20 05:45 Eos # (Auto) 0.1 K/mm3 (0.0-0.4) 06/08/20 05:45 Baso # (Auto) 0.0 K/mm3 (0.0-0.1) 06/08/20 05:45 Seg Neutrophils % 51.0 % (40.0-70.0) 06/08/20 05:45 Seg Neutrophils # 3.1 K/mm3 (1.8-7.7) 06/08/20 05:45 Sodium 141 mmol/L (137-145) 06/08/20 05:45 Potassium 4.4 mmol/L (3.6-5.0) 06/08/20 05:45 Chloride 104.9 mmol/L (98-107) 06/08/20 05:45 Carbon Dioxide 27 mmol/L (22-30) 06/08/20 05:45 Anion Gap 14 mmol/L 06/08/20 05:45 BUN 9 mg/dL (9-20) 06/08/20 05:45 Creatinine 1.0 mg/dL (0.8-1.3) 06/08/20 05:45 Estimated GFR > 60 ml/min 06/08/20 05:45 BUN/Creatinine Ratio 9 % 06/08/20 05:45 Glucose 93 mg/dL (75-100) 06/08/20 05:45 POC Glucose 93 mg/dL (70-105) 06/07/20 03:46 Calcium 9.2 mg/dL (8.4-10.2) 06/08/20 05:45 Total Bilirubin < 0.20 mg/dL (0.1-1.2) 06/08/20 05:45 AST 14 units/L (5-40) 06/08/20 05:45 ALT 13 units/L (7-56) 06/08/20 05:45 Alkaline Phosphatase 62 units/L (35-129) 06/08/20 05:45 Total Protein 6.2 g/dL (6.3-8.2) L 06/08/20 05:45 Albumin 3.7 g/dL (3.9-5) L 06/08/20 05:45 Albumin/Globulin Ratio 1.5 % 06/08/20 05:45 Triglycerides 72 mg/dL (2-149) 06/08/20 05:45 Cholesterol 142 mg/dL (50-199) 06/08/20 05:45 LDL Cholesterol Direct 89 mg/dL (50-130) 06/08/20 05:45 HDL Cholesterol 50 mg/dL (40-59) 06/08/20 05:45 Cholesterol/HDL Ratio 2.84 % 06/08/20 05:45 TSH 1.590 mlU/mL (0.270-4.200) 06/08/20 05:45 Last Vital Signs Temp 98.1 F 06/10/20 06:53 Pulse 76 06/10/20 06:53 Resp 16 06/10/20 06:53 BP 104/65 06/10/20 06:53 Pulse Ox 95 06/10/20 06:53
[2020-06-10] MEDS: traZODone 50 MG TAB PO SCH (21:16)
[2020-06-10] MEDS: MELATONIN 5 MG TAB PO SCH (21:17)
--- NOTE | 2020-06-11 09:08 | Progress Note ---
Subjective Date of service: 06/11/20 Principal diagnosis: Schizoaffective disorder, bipolar type Subjective Comment: During my interview with the patient today, he is a/o x 2. He says he is "depressed." He makes poor eye contact. The patient denies SI/HI. He says he thought "the rat poison was candy." It's not clear how forthcoming he is. He denies hallucinations of any kind. Reason for continued inpatient treatment: The patient continues to be depressed and had a recent suicidal attempt. The patient appears to be not forthcoming if he currently feels that way. REVIEW OF SYSTEMS Constitutional: Negative for weight loss ENT: Negative for stridor Respiratory: Negative for cough or hemoptysis All other systems reviewed and are negative MENTAL STATUS EXAMINATION General Appearance and Behavior: Age appropriate, good hygiene, not wearing appropriate clothes, poor eye contact, cooperative and polite with questioning. Cooperation: Participating/engaged Psychomotor Behavior: Psychomotor normal Mood: "depressed" Affect and affective range: congruent with mood Thought Process:logical Thought Content: within reality Speech: regular rate and rhythm Intellectual Functioning: Average Suicidal Ideation: Denies, possibly not forthcoming Homicidal Ideation: Denies HIl Impulse Control: Impaired Insight and Judgment: Limited insight and judgment Memory: Normal, Attention: attention intact Orientation: Alert, oriented, Assessment and Plan (1) Schizoaffective disorder, bipolar type Current Visit: Yes Status: Acute Treatment Plan Patient admitted for inpatient psychiatric evaluation, medication adjustment and close monitoring The patient's behavior, mood, sleep and appetite will be closely monitored. Patient enrolled in individual and group therapeutic sessions and encouraged to attend. Patient provided with a safe and structured environment. Patient's physical health needs will be addressed by the Hospitalist. Hospitalist Consulted Labs including CBC, CMP, Lipid profile and Hemoglobin A1C levels ordered for baseline reference Social Assessment will be completed and the Stacker Operator will work with patient and family to ensure a suitable and safe disposition Medication adjustment will be made as clinically indicated Increased Prozac 40mg po daily Usual Wellness Yarsani/Preservation: - Start Trazodone 50 mg po QHS & 50 mg po QHS PRN between 10 PM & 2 AM for insomnia - Start Melatonin 5 mg po QHS to promote circadian rhythm - Start [place]-3 for brain health, reduce impulsivity, and as adjunctive treatment for mood disorder, continue upon discharge given overall benefits. - Start B1 prophylaxis with 200 mg po for 5 days The patient agreed on the treatment plan, understood the risk, benefit, alternative treatment, potential consequence of no treatment, and gave informed consent. Estimated days: 3 Post hospital care: primary care provider, psychiatric provider Medications and Allergies Allergies Allergy/AdvReac Type Severity Reaction Status Date / Time No Known Allergies Allergy Unverified 06/06/20 16:55 Home Medications Medication Instructions Recorded Confirmed Last Taken Type Depakote Dr 1,000 mg PO HS 06/07/20 06/07/[address] 500 mg PO DAILY 06/07/20 06/07/20 Unknown History Melatonin 3 mg PO HS 06/07/20 06/07/20 Unknown History Prozac 20 mg PO DAILY 06/07/20 06/07/20 Unknown History RisperDAL 2 mg PO HS 06/07/20 06/07/20 Unknown History Active Meds: Active Medications Divalproex Sodium (Depakote Dr) 500 mg PO BID [facility] Last Admin: 06/10/20 21:17 Dose: 500 mg Documented by: Fluoxetine HCl (Prozac) 30 mg PO QDAY [facility] Last Admin: 06/10/20 09:38 Dose: 30 mg Documented by: Lorazepam (Ativan) 2 mg IM Q4HR PRN PRN Reason: Agitation Last Admin: 06/07/20 10:38 Dose: 2 mg Documented by: Melatonin (Melatonin) 5 mg PO QHS [facility] Last Admin: 06/10/20 21:17 Dose: 5 mg Documented by: Risperidone (Risperdal) 2 mg PO BID [facility] Last Admin: 06/10/20 21:16 Dose: 2 mg Documented by: Trazodone HCl (Desyrel) 50 mg PO QHS [facility] Last Admin: 06/10/20 21:16 Dose: 50 mg Documented by: Ziprasidone (Geodon) 15 mg IM Q4H PRN PRN Reason: Agitation Last Admin: 06/07/20 10:37 Dose: 15 mg Documented by: Results - Results Labs/Vitals: Laboratory Last Values WBC 6.1 K/mm3 (4.5-11.0) 06/08/20 05:45 RBC 4.45 M/mm3 (3.65-5.03) 06/08/20 05:45 Hgb 12.6 gm/dl (11.8-15.2) 06/08/20 05:45 Hct 38.1 % (35.5-45.6) 06/08/20 05:45 MCV 86 fl (84-94) 06/08/20 05:45 MCH 28 pg (28-32) 06/08/20 05:45 MCHC 33 % (32-34) 06/08/20 05:45 RDW 14.0 % (13.2-15.2) 06/08/20 05:45 Plt Count 170 K/mm3 (140-440) 06/08/20 05:45 Lymph % (Auto) 41.0 % (13.4-35.0) H 06/08/20 05:45 [place] % (Auto) 5.8 % (0.0-7.3) 06/08/20 05:45 Eos % (Auto) 1.8 % (0.0-4.3) 06/08/20 05:45 Baso % (Auto) 0.4 % (0.0-1.8) 06/08/20 05:45 Lymph # (Auto) 2.5 K/mm3 (1.2-5.4) 06/08/20 05:45 [place] # (Auto) 0.3 K/mm3 (0.0-0.8) 06/08/20 05:45 Eos # (Auto) 0.1 K/mm3 (0.0-0.4) 06/08/20 05:45 Baso # (Auto) 0.0 K/mm3 (0.0-0.1) 06/08/20 05:45 Seg Neutrophils % 51.0 % (40.0-70.0) 06/08/20 05:45 Seg Neutrophils # 3.1 K/mm3 (1.8-7.7) 06/08/20 05:45 Sodium 141 mmol/L (137-145) 06/08/20 05:45 Potassium 4.4 mmol/L (3.6-5.0) 06/08/20 05:45 Chloride 104.9 mmol/L (98-107) 06/08/20 05:45 Carbon Dioxide 27 mmol/L (22-30) 06/08/20 05:45 Anion Gap 14 mmol/L 06/08/20 05:45 BUN 9 mg/dL (9-20) 06/08/20 05:45 Creatinine 1.0 mg/dL (0.8-1.3) 06/08/20 05:45 Estimated GFR > 60 ml/min 06/08/20 05:45 BUN/Creatinine Ratio 9 % 06/08/20 05:45 Glucose 93 mg/dL (75-100) 06/08/20 05:45 POC Glucose 93 mg/dL (70-105) 06/07/20 03:46 Calcium 9.2 mg/dL (8.4-10.2) 06/08/20 05:45 Total Bilirubin < 0.20 mg/dL (0.1-1.2) 06/08/20 05:45 AST 14 units/L (5-40) 06/08/20 05:45 ALT 13 units/L (7-56) 06/08/20 05:45 Alkaline Phosphatase 62 units/L (35-129) 06/08/20 05:45 Total Protein 6.2 g/dL (6.3-8.2) L 06/08/20 05:45 Albumin 3.7 g/dL (3.9-5) L 06/08/20 05:45 Albumin/Globulin Ratio 1.5 % 06/08/20 05:45 Triglycerides 72 mg/dL (2-149) 06/08/20 05:45 Cholesterol 142 mg/dL (50-199) 06/08/20 05:45 LDL Cholesterol Direct 89 mg/dL (50-130) 06/08/20 05:45 HDL Cholesterol 50 mg/dL (40-59) 06/08/20 05:45 Cholesterol/HDL Ratio 2.84 % 06/08/20 05:45 TSH 1.590 mlU/mL (0.270-4.200) 06/08/20 05:45 Last Vital Signs Temp 98.5 F 06/10/20 19:21 Pulse 87 06/10/20 19:21 Resp 18 06/10/20 19:21 BP 102/66 06/10/20 19:21 Pulse Ox 96 06/10/20 19:21
[2020-06-11] MEDS: DIVALPROEX DR 500 MG TAB PO SCH ×2 (09:40→21:18)
[2020-06-11] MEDS: FLUoxetine 20 MG CAP PO SCH (09:42)
[2020-06-11] MEDS: risperiDONE 1 MG TAB PO SCH ×2 (09:42→21:18)
[2020-06-11] MEDS: traZODone 50 MG TAB PO SCH (21:18)
[2020-06-11] MEDS: MELATONIN 5 MG TAB PO SCH (21:19)
--- NOTE | 2020-06-12 09:28 | Progress Note ---
Subjective Date of service: 06/12/20 Principal diagnosis: Schizoaffective disorder, bipolar type Subjective Comment: During my interview with the patient today, he is a/o x 2. He says he's doing "alright." The patient says he "slept good." He denies SI/HI at present. He also denies any hallucinations of any kind. Reason for continued inpatient treatment: The had a recent suicidal attempt. Will continue to treat and stabilize to ensue a safe discharge. REVIEW OF SYSTEMS Constitutional: Negative for weight loss ENT: Negative for stridor Respiratory: Negative for cough or hemoptysis All other systems reviewed and are negative MENTAL STATUS EXAMINATION General Appearance and Behavior: Age appropriate, good hygiene, not wearing appropriate clothes, poor eye contact, cooperative and polite with questioning. Cooperation: Participating/engaged Psychomotor Behavior: Psychomotor normal Mood: "alright" Affect and affective range: congruent with mood Thought Process: logical Thought Content: within reality Speech: regular rate and rhythm Intellectual Functioning: Average Suicidal Ideation: Denies, possibly not forthcoming Homicidal Ideation: Denies HIl Impulse Control: Impaired Insight and Judgment: Limited insight and judgment Memory: Normal, Attention: attention intact Orientation: Alert, oriented, Assessment and Plan (1) Schizoaffective disorder, bipolar type Current Visit: Yes Status: Acute Treatment Plan Patient admitted for inpatient psychiatric evaluation, medication adjustment and close monitoring The patient's behavior, mood, sleep and appetite will be closely monitored. Patient enrolled in individual and group therapeutic sessions and encouraged to attend. Patient provided with a safe and structured environment. Patient's physical health needs will be addressed by the Hospitalist. Hospitalist Consulted Labs including CBC, CMP, Lipid profile and Hemoglobin A1C levels ordered for baseline reference Social Assessment will be completed and the Real Estate Services Coordinator will work with patient and family to ensure a suitable and safe disposition Medication adjustment will be made as clinically indicated Increased Prozac 40mg po daily yesterday No changes today Usual Wellness Jew/Preservation: - Start Trazodone 50 mg po QHS & 50 mg po QHS PRN between 10 PM & 2 AM for insomnia - Start Melatonin 5 mg po QHS to promote circadian rhythm - Start [place]-3 for brain health, reduce impulsivity, and as adjunctive treatment for mood disorder, continue upon discharge given overall benefits. - Start B1 prophylaxis with 200 mg po for 5 days The patient agreed on the treatment plan, understood the risk, benefit, alternative treatment, potential consequence of no treatment, and gave informed consent. Estimated days: 3 Post hospital care: primary care provider, psychiatric provider Medications and Allergies Allergies Allergy/AdvReac Type Severity Reaction Status Date / Time No Known Allergies Allergy Unverified 06/06/20 16:55 Home Medications Medication Instructions Recorded Confirmed Last Taken Type Depakote Dr 1,000 mg PO HS 06/07/20 06/07/[address] 500 mg PO DAILY 06/07/20 06/07/20 Unknown History Melatonin 3 mg PO HS 06/07/20 06/07/20 Unknown History Prozac 20 mg PO DAILY 06/07/20 06/07/20 Unknown History RisperDAL 2 mg PO HS 06/07/20 06/07/20 Unknown History Active Meds: Active Medications Divalproex Sodium (Depakote Dr) 500 mg PO BID [facility] Last Admin: 06/11/20 21:18 Dose: 500 mg Documented by: Fluoxetine HCl (Prozac) 40 mg PO QDAY [facility] Last Admin: 06/11/20 09:42 Dose: 40 mg Documented by: Lorazepam (Ativan) 2 mg IM Q4HR PRN PRN Reason: Agitation Last Admin: 06/07/20 10:38 Dose: 2 mg Documented by: Melatonin (Melatonin) 5 mg PO QHS [facility] Last Admin: 06/11/20 21:19 Dose: 5 mg Documented by: Risperidone (Risperdal) 2 mg PO BID [facility] Last Admin: 06/11/20 21:18 Dose: 2 mg Documented by: Trazodone HCl (Desyrel) 50 mg PO QHS [facility] Last Admin: 06/11/20 21:18 Dose: 50 mg Documented by: Ziprasidone (Geodon) 15 mg IM Q4H PRN PRN Reason: Agitation Last Admin: 06/07/20 10:37 Dose: 15 mg Documented by: Results - Results Labs/Vitals: Laboratory Last Values WBC 6.1 K/mm3 (4.5-11.0) 06/08/20 05:45 RBC 4.45 M/mm3 (3.65-5.03) 06/08/20 05:45 Hgb 12.6 gm/dl (11.8-15.2) 06/08/20 05:45 Hct 38.1 % (35.5-45.6) 06/08/20 05:45 MCV 86 fl (84-94) 06/08/20 05:45 MCH 28 pg (28-32) 06/08/20 05:45 MCHC 33 % (32-34) 06/08/20 05:45 RDW 14.0 % (13.2-15.2) 06/08/20 05:45 Plt Count 170 K/mm3 (140-440) 06/08/20 05:45 Lymph % (Auto) 41.0 % (13.4-35.0) H 06/08/20 05:45 [place] % (Auto) 5.8 % (0.0-7.3) 06/08/20 05:45 Eos % (Auto) 1.8 % (0.0-4.3) 06/08/20 05:45 Baso % (Auto) 0.4 % (0.0-1.8) 06/08/20 05:45 Lymph # (Auto) 2.5 K/mm3 (1.2-5.4) 06/08/20 05:45 [place] # (Auto) 0.3 K/mm3 (0.0-0.8) 06/08/20 05:45 Eos # (Auto) 0.1 K/mm3 (0.0-0.4) 06/08/20 05:45 Baso # (Auto) 0.0 K/mm3 (0.0-0.1) 06/08/20 05:45 Seg Neutrophils % 51.0 % (40.0-70.0) 06/08/20 05:45 Seg Neutrophils # 3.1 K/mm3 (1.8-7.7) 06/08/20 05:45 Sodium 141 mmol/L (137-145) 06/08/20 05:45 Potassium 4.4 mmol/L (3.6-5.0) 06/08/20 05:45 Chloride 104.9 mmol/L (98-107) 06/08/20 05:45 Carbon Dioxide 27 mmol/L (22-30) 06/08/20 05:45 Anion Gap 14 mmol/L 06/08/20 05:45 BUN 9 mg/dL (9-20) 06/08/20 05:45 Creatinine 1.0 mg/dL (0.8-1.3) 06/08/20 05:45 Estimated GFR > 60 ml/min 06/08/20 05:45 BUN/Creatinine Ratio 9 % 06/08/20 05:45 Glucose 93 mg/dL (75-100) 06/08/20 05:45 POC Glucose 93 mg/dL (70-105) 06/07/20 03:46 Calcium 9.2 mg/dL (8.4-10.2) 06/08/20 05:45 Total Bilirubin < 0.20 mg/dL (0.1-1.2) 06/08/20 05:45 AST 14 units/L (5-40) 06/08/20 05:45 ALT 13 units/L (7-56) 06/08/20 05:45 Alkaline Phosphatase 62 units/L (35-129) 06/08/20 05:45 Total Protein 6.2 g/dL (6.3-8.2) L 06/08/20 05:45 Albumin 3.7 g/dL (3.9-5) L 06/08/20 05:45 Albumin/Globulin Ratio 1.5 % 06/08/20 05:45 Triglycerides 72 mg/dL (2-149) 06/08/20 05:45 Cholesterol 142 mg/dL (50-199) 06/08/20 05:45 LDL Cholesterol Direct 89 mg/dL (50-130) 06/08/20 05:45 HDL Cholesterol 50 mg/dL (40-59) 06/08/20 05:45 Cholesterol/HDL Ratio 2.84 % 06/08/20 05:45 TSH 1.590 mlU/mL (0.270-4.200) 06/08/20 05:45 Last Vital Signs Temp 98.0 F 06/11/20 19:33 Pulse 60 06/11/20 19:33 Resp 16 06/11/20 19:33 BP 116/72 06/11/20 19:33 Pulse Ox 95 06/11/20 19:33
[2020-06-12] MEDS: FLUoxetine 20 MG CAP PO SCH (10:28)
[2020-06-12] MEDS: risperiDONE 1 MG TAB PO SCH ×2 (10:28→21:08)
[2020-06-12] MEDS: DIVALPROEX DR 500 MG TAB PO SCH ×2 (10:28→21:08)
--- NOTE | 2020-06-12 17:27 | Progress Note ---
Assessment and Plan - Patient Problems (1) Schizoaffective disorder, bipolar type Current Visit: Yes Status: Acute Plan to address problem: Supportive care, continue current management, cognitive behavioral therapy. As per primary team (2) Nicotine dependence Current Visit: Yes Status: Acute Qualifiers: Nicotine product type: cigarettes Substance use status: in withdrawal Qualified Code(s): F17.213 - Nicotine dependence, cigarettes, with withdrawal Plan to address problem: Smoking cessation counseling, supportive care, behavior change counseling, +15 minutes. History Interval history: 55 YO Male with Nicotine Dependence, Bipolar Disorder, Schizophrenia admitted to [facility] for Psychiatric stabilization. Patient seen and evaluated in the recreation room. Patient resting comfortably. Patient denies fever, ch ills, chest pain. No reported nursing events. Hospitalist Physical - Constitutional Vitals: Temp Pulse Resp BP Pulse Ox 98.0 F 60 16 116/72 95 06/11/20 19:33 06/11/20 19:33 06/11/20 19:33 06/11/20 19:33 06/11/20 19:33 General appearance: Present: no acute distress, well-nourished - EENT Eyes: Present: PERRL, EOM intact - Neck Neck: Present: supple - Respiratory Respiratory: bilateral: CTA - Cardiovascular Rhythm: regular Heart Sounds: Present: S1 & S2 - Extremities Extremities: no ischemia Peripheral Pulses: within normal limits - Abdominal General gastrointestinal: soft, non-tender, non-distended - Integumentary Integumentary: Present: clear, dry - Psychiatric Psychiatric: cooperative - Neurologic Neurologic: CNII-XII intact Results - Labs CBC & Chem 7: 06/08/20 05:45 06/08/20 05:45 Labs: Laboratory Last Values WBC 6.1 K/mm3 (4.5-11.0) 06/08/20 05:45 RBC 4.45 M/mm3 (3.65-5.03) 06/08/20 05:45 Hgb 12.6 gm/dl (11.8-15.2) 06/08/20 05:45 Hct 38.1 % (35.5-45.6) 06/08/20 05:45 MCV 86 fl (84-94) 06/08/20 05:45 MCH 28 pg (28-32) 06/08/20 05:45 MCHC 33 % (32-34) 06/08/20 05:45 RDW 14.0 % (13.2-15.2) 06/08/20 05:45 Plt Count 170 K/mm3 (140-440) 06/08/20 05:45 Lymph % (Auto) 41.0 % (13.4-35.0) H 06/08/20 05:45 [place] % (Auto) 5.8 % (0.0-7.3) 06/08/20 05:45 Eos % (Auto) 1.8 % (0.0-4.3) 06/08/20 05:45 Baso % (Auto) 0.4 % (0.0-1.8) 06/08/20 05:45 Lymph # (Auto) 2.5 K/mm3 (1.2-5.4) 06/08/20 05:45 [place] # (Auto) 0.3 K/mm3 (0.0-0.8) 06/08/20 05:45 Eos # (Auto) 0.1 K/mm3 (0.0-0.4) 06/08/20 05:45 Baso # (Auto) 0.0 K/mm3 (0.0-0.1) 06/08/20 05:45 Seg Neutrophils % 51.0 % (40.0-70.0) 06/08/20 05:45 Seg Neutrophils # 3.1 K/mm3 (1.8-7.7) 06/08/20 05:45 Sodium 141 mmol/L (137-145) 06/08/20 05:45 Potassium 4.4 mmol/L (3.6-5.0) 06/08/20 05:45 Chloride 104.9 mmol/L (98-107) 06/08/20 05:45 Carbon Dioxide 27 mmol/L (22-30) 06/08/20 05:45 Anion Gap 14 mmol/L 06/08/20 05:45 BUN 9 mg/dL (9-20) 06/08/20 05:45 Creatinine 1.0 mg/dL (0.8-1.3) 06/08/20 05:45 Estimated GFR > 60 ml/min 06/08/20 05:45 BUN/Creatinine Ratio 9 % 06/08/20 05:45 Glucose 93 mg/dL (75-100) 06/08/20 05:45 POC Glucose 93 mg/dL (70-105) 06/07/20 03:46 Calcium 9.2 mg/dL (8.4-10.2) 06/08/20 05:45 Total Bilirubin < 0.20 mg/dL (0.1-1.2) 06/08/20 05:45 AST 14 units/L (5-40) 06/08/20 05:45 ALT 13 units/L (7-56) 06/08/20 05:45 Alkaline Phosphatase 62 units/L (35-129) 06/08/20 05:45 Total Protein 6.2 g/dL (6.3-8.2) L 06/08/20 05:45 Albumin 3.7 g/dL (3.9-5) L 06/08/20 05:45 Albumin/Globulin Ratio 1.5 % 06/08/20 05:45 Triglycerides 72 mg/dL (2-149) 06/08/20 05:45 Cholesterol 142 mg/dL (50-199) 06/08/20 05:45 LDL Cholesterol Direct 89 mg/dL (50-130) 06/08/20 05:45 HDL Cholesterol 50 mg/dL (40-59) 06/08/20 05:45 Cholesterol/HDL Ratio 2.84 % 06/08/20 05:45 TSH 1.590 mlU/mL (0.270-4.200) 06/08/20 05:45 Valproic Acid 75.8 ug/mL (50-100) 06/12/20 10:40 [place]/IV: Voiding Method Toilet Active Medications - Current Medications Current Medications: Generic Name Dose Route Start Last Admin Trade Name Freq PRN Reason Stop Dose Admin Divalproex Sodium 500 mg 06/07/20 10:00 06/12/20 10:[address] PO 500 mg BID [facility] Administration Fluoxetine HCl 40 mg 06/11/20 10:00 06/12/20 10:28 Prozac PO 40 mg QDAY [facility] Administration Lorazepam 2 mg 06/07/20 07:54 06/07/20 10:38 Ativan IM 2 mg Q4HR PRN Administration Agitation Melatonin 5 mg 06/06/20 22:00 06/11/20 21:19 Melatonin PO 5 mg QHS [facility] Administration Risperidone 2 mg 06/07/20 10:00 06/12/20 10:28 Risperdal PO 2 mg BID [facility] Administration Trazodone HCl 50 mg 06/06/20 22:00 06/11/20 21:18 Desyrel PO 50 mg QHS [facility] Administration Ziprasidone 15 mg 06/07/20 07:54 06/07/20 10:37 Geodon IM 15 mg Q4H PRN Administration Agitation
[2020-06-12] MEDS: traZODone 50 MG TAB PO SCH (21:08)
[2020-06-12] MEDS: MELATONIN 5 MG TAB PO SCH (21:08)
[2020-06-13] MEDS: risperiDONE 1 MG TAB PO SCH ×2 (09:37→22:50)
[2020-06-13] MEDS: FLUoxetine 20 MG CAP PO SCH (09:37)
[2020-06-13] MEDS: DIVALPROEX DR 500 MG TAB PO SCH ×2 (09:38→22:50)
--- NOTE | 2020-06-13 12:33 | Progress Note ---
Subjective Date of service: 06/13/20 Principal diagnosis: Schizoaffective disorder, bipolar type Subjective Comment: During my interview with the patient today, he is a/o x 3. He says he's doing "better." The patient says he "slept good." He denies SI/HI at present. He also denies any hallucinations of any kind. Reason for continued inpatient treatment: The patient has improved significantly. He is awaiting placement to ensue a safe discharge. REVIEW OF SYSTEMS Constitutional: Negative for weight loss ENT: Negative for stridor Respiratory: Negative for cough or hemoptysis All other systems reviewed and are negative MENTAL STATUS EXAMINATION General Appearance and Behavior: Age appropriate, good hygiene, not wearing appropriate clothes, poor eye contact, cooperative and polite with questioning. Cooperation: Participating/engaged Psychomotor Behavior: Psychomotor normal Mood: "alright" Affect and affective range: congruent with mood Thought Process: logical Thought Content: within reality Speech: regular rate and rhythm Intellectual Functioning: Average Suicidal Ideation: Denies, possibly not forthcoming Homicidal Ideation: Denies HIl Impulse Control: Impaired Insight and Judgment: Limited insight and judgment Memory: Normal, Attention: attention intact Orientation: Alert, oriented, Assessment and Plan (1) Schizoaffective disorder, bipolar type Current Visit: Yes Status: Acute Treatment Plan Patient admitted for inpatient psychiatric evaluation, medication adjustment and close monitoring The patient's behavior, mood, sleep and appetite will be closely monitored. Patient enrolled in individual and group therapeutic sessions and encouraged to attend. Patient provided with a safe and structured environment. Patient's physical health needs will be addressed by the Hospitalist. Hospitalist Consulted Labs including CBC, CMP, Lipid profile and Hemoglobin A1C levels ordered for baseline reference Social Assessment will be completed and the Photoresist Contact Printer will work with patient and family to ensure a suitable and safe disposition Medication adjustment will be made as clinically indicated No changes today Usual Wellness Buddhist/Preservation: - Start Trazodone 50 mg po QHS & 50 mg po QHS PRN between 10 PM & 2 AM for insomnia - Start Melatonin 5 mg po QHS to promote circadian rhythm - Start [place]-3 for brain health, reduce impulsivity, and as adjunctive treatment for mood disorder, continue upon discharge given overall benefits. - Start B1 prophylaxis with 200 mg po for 5 days The patient agreed on the treatment plan, understood the risk, benefit, alternative treatment, potential consequence of no treatment, and gave informed consent. Estimated days: 3 Post hospital care: primary care provider, psychiatric provider Medications and Allergies Allergies Allergy/AdvReac Type Severity Reaction Status Date / Time No Known Allergies Allergy Unverified 06/06/20 16:55 Home Medications Medication Instructions Recorded Confirmed Last Taken Type Depakote Dr 1,000 mg PO HS 06/07/20 06/07/[address] 500 mg PO DAILY 06/07/20 06/07/20 Unknown History Melatonin 3 mg PO HS 06/07/20 06/07/20 Unknown History Prozac 20 mg PO DAILY 06/07/20 06/07/20 Unknown History RisperDAL 2 mg PO HS 06/07/20 06/07/20 Unknown History Active Meds: Active Medications Divalproex Sodium (Depakote Dr) 500 mg PO BID [facility] Last Admin: 06/13/20 09:38 Dose: 500 mg Documented by: Fluoxetine HCl (Prozac) 40 mg PO QDAY [facility] Last Admin: 06/13/20 09:37 Dose: 40 mg Documented by: Lorazepam (Ativan) 2 mg IM Q4HR PRN PRN Reason: Agitation Last Admin: 06/07/20 10:38 Dose: 2 mg Documented by: Melatonin (Melatonin) 5 mg PO QHS [facility] Last Admin: 06/12/20 21:08 Dose: 5 mg Documented by: Risperidone (Risperdal) 2 mg PO BID [facility] Last Admin: 06/13/20 09:37 Dose: 2 mg Documented by: Trazodone HCl (Desyrel) 50 mg PO QHS [facility] Last Admin: 06/12/20 21:08 Dose: 50 mg Documented by: Ziprasidone (Geodon) 15 mg IM Q4H PRN PRN Reason: Agitation Last Admin: 06/07/20 10:37 Dose: 15 mg Documented by: Results - Results Labs/Vitals: Laboratory Last Values WBC 6.1 K/mm3 (4.5-11.0) 06/08/20 05:45 RBC 4.45 M/mm3 (3.65-5.03) 06/08/20 05:45 Hgb 12.6 gm/dl (11.8-15.2) 06/08/20 05:45 Hct 38.1 % (35.5-45.6) 06/08/20 05:45 MCV 86 fl (84-94) 06/08/20 05:45 MCH 28 pg (28-32) 06/08/20 05:45 MCHC 33 % (32-34) 06/08/20 05:45 RDW 14.0 % (13.2-15.2) 06/08/20 05:45 Plt Count 170 K/mm3 (140-440) 06/08/20 05:45 Lymph % (Auto) 41.0 % (13.4-35.0) H 06/08/20 05:45 [place] % (Auto) 5.8 % (0.0-7.3) 06/08/20 05:45 Eos % (Auto) 1.8 % (0.0-4.3) 06/08/20 05:45 Baso % (Auto) 0.4 % (0.0-1.8) 06/08/20 05:45 Lymph # (Auto) 2.5 K/mm3 (1.2-5.4) 06/08/20 05:45 [place] # (Auto) 0.3 K/mm3 (0.0-0.8) 06/08/20 05:45 Eos # (Auto) 0.1 K/mm3 (0.0-0.4) 06/08/20 05:45 Baso # (Auto) 0.0 K/mm3 (0.0-0.1) 06/08/20 05:45 Seg Neutrophils % 51.0 % (40.0-70.0) 06/08/20 05:45 Seg Neutrophils # 3.1 K/mm3 (1.8-7.7) 06/08/20 05:45 Sodium 141 mmol/L (137-145) 06/08/20 05:45 Potassium 4.4 mmol/L (3.6-5.0) 06/08/20 05:45 Chloride 104.9 mmol/L (98-107) 06/08/20 05:45 Carbon Dioxide 27 mmol/L (22-30) 06/08/20 05:45 Anion Gap 14 mmol/L 06/08/20 05:45 BUN 9 mg/dL (9-20) 06/08/20 05:45 Creatinine 1.0 mg/dL (0.8-1.3) 06/08/20 05:45 Estimated GFR > 60 ml/min 06/08/20 05:45 BUN/Creatinine Ratio 9 % 06/08/20 05:45 Glucose 93 mg/dL (75-100) 06/08/20 05:45 POC Glucose 93 mg/dL (70-105) 06/07/20 03:46 Calcium 9.2 mg/dL (8.4-10.2) 06/08/20 05:45 Total Bilirubin < 0.20 mg/dL (0.1-1.2) 06/08/20 05:45 AST 14 units/L (5-40) 06/08/20 05:45 ALT 13 units/L (7-56) 06/08/20 05:45 Alkaline Phosphatase 62 units/L (35-129) 06/08/20 05:45 Total Protein 6.2 g/dL (6.3-8.2) L 06/08/20 05:45 Albumin 3.7 g/dL (3.9-5) L 06/08/20 05:45 Albumin/Globulin Ratio 1.5 % 06/08/20 05:45 Triglycerides 72 mg/dL (2-149) 06/08/20 05:45 Cholesterol 142 mg/dL (50-199) 06/08/20 05:45 LDL Cholesterol Direct 89 mg/dL (50-130) 06/08/20 05:45 HDL Cholesterol 50 mg/dL (40-59) 06/08/20 05:45 Cholesterol/HDL Ratio 2.84 % 06/08/20 05:45 TSH 1.590 mlU/mL (0.270-4.200) 06/08/20 05:45 Valproic Acid 75.8 ug/mL (50-100) 06/12/20 10:40 Last Vital Signs Temp 97.5 F L 06/13/20 09:32 Pulse 76 06/13/20 09:32 Resp 18 06/13/20 09:32 BP 94/58 06/13/20 09:32 Pulse Ox 96 06/13/20 09:32
[2020-06-13] MEDS: MELATONIN 5 MG TAB PO SCH (22:50)
[2020-06-13] MEDS: traZODone 50 MG TAB PO SCH (22:50)
[2020-06-14] MEDS: FLUoxetine 20 MG CAP PO SCH (09:37)
[2020-06-14] MEDS: DIVALPROEX DR 500 MG TAB PO SCH ×2 (09:38→22:17)
[2020-06-14] MEDS: risperiDONE 1 MG TAB PO SCH ×2 (09:38→22:18)
--- NOTE | 2020-06-14 11:29 | Progress Note ---
Subjective Date of service: 06/14/20 Principal diagnosis: Schizoaffective disorder, bipolar type Subjective Comment: During my interview with the patient today, he is a/o x 3. He is sitting in the dayroom awake. He says he's doing "alright." The patient says he "slept good." He denies SI/HI at present. He also denies any hallucinations of any kind. Reason for continued inpatient treatment: The patient has improved significantly. He is awaiting placement to ensue a safe discharge. REVIEW OF SYSTEMS Constitutional: Negative for weight loss ENT: Negative for stridor Respiratory: Negative for cough or hemoptysis All other systems reviewed and are negative MENTAL STATUS EXAMINATION General Appearance and Behavior: Age appropriate, good hygiene, not wearing appropriate clothes, poor eye contact, cooperative and polite with questioning. Cooperation: Participating/engaged Psychomotor Behavior: Psychomotor normal Mood: "alright" Affect and affective range: congruent with mood Thought Process: logical Thought Content: within reality Speech: regular rate and rhythm Intellectual Functioning: Average Suicidal Ideation: Denies, possibly not forthcoming Homicidal Ideation: Denies HIl Impulse Control: Impaired Insight and Judgment: Limited insight and judgment Memory: Normal, Attention: attention intact Orientation: Alert, oriented, Assessment and Plan (1) Schizoaffective disorder, bipolar type Current Visit: Yes Status: Acute Treatment Plan Patient admitted for inpatient psychiatric evaluation, medication adjustment and close monitoring The patient's behavior, mood, sleep and appetite will be closely monitored. Patient enrolled in individual and group therapeutic sessions and encouraged to attend. Patient provided with a safe and structured environment. Patient's physical health needs will be addressed by the Hospitalist. Hospitalist Consulted Labs including CBC, CMP, Lipid profile and Hemoglobin A1C levels ordered for baseline reference Social Assessment will be completed and the [facility] will work with patient and family to ensure a suitable and safe disposition Medication adjustment will be made as clinically indicated No changes today Usual Wellness Druze/Preservation: - Start Trazodone 50 mg po QHS & 50 mg po QHS PRN between 10 PM & 2 AM for insomnia - Start Melatonin 5 mg po QHS to promote circadian rhythm - Start [place]-3 for brain health, reduce impulsivity, and as adjunctive treatment for mood disorder, continue upon discharge given overall benefits. - Start B1 prophylaxis with 200 mg po for 5 days The patient agreed on the treatment plan, understood the risk, benefit, alternative treatment, potential consequence of no treatment, and gave informed consent. Estimated days: 3 Post hospital care: primary care provider, psychiatric provider Medications and Allergies Allergies Allergy/AdvReac Type Severity Reaction Status Date / Time No Known Allergies Allergy Unverified 06/06/20 16:55 Home Medications Medication Instructions Recorded Confirmed Last Taken Type Depakote Dr 1,000 mg PO HS 06/07/20 06/07/[address] 500 mg PO DAILY 06/07/20 06/07/20 Unknown History Melatonin 3 mg PO HS 06/07/20 06/07/20 Unknown History Prozac 20 mg PO DAILY 06/07/20 06/07/20 Unknown History RisperDAL 2 mg PO HS 06/07/20 06/07/20 Unknown History Active Meds: Active Medications Divalproex Sodium (Depakote Dr) 500 mg PO BID [facility] Last Admin: 06/14/20 09:38 Dose: 500 mg Documented by: Fluoxetine HCl (Prozac) 40 mg PO QDAY [facility] Last Admin: 06/14/20 09:37 Dose: 40 mg Documented by: Lorazepam (Ativan) 2 mg IM Q4HR PRN PRN Reason: Agitation Last Admin: 06/07/20 10:38 Dose: 2 mg Documented by: Melatonin (Melatonin) 5 mg PO QHS [facility] Last Admin: 06/13/20 22:50 Dose: 5 mg Documented by: Risperidone (Risperdal) 2 mg PO BID [facility] Last Admin: 06/14/20 09:38 Dose: 2 mg Documented by: Trazodone HCl (Desyrel) 50 mg PO QHS [facility] Last Admin: 06/13/20 22:50 Dose: 50 mg Documented by: Ziprasidone (Geodon) 15 mg IM Q4H PRN PRN Reason: Agitation Last Admin: 06/07/20 10:37 Dose: 15 mg Documented by: Results - Results Labs/Vitals: Laboratory Last Values WBC 6.1 K/mm3 (4.5-11.0) 06/08/20 05:45 RBC 4.45 M/mm3 (3.65-5.03) 06/08/20 05:45 Hgb 12.6 gm/dl (11.8-15.2) 06/08/20 05:45 Hct 38.1 % (35.5-45.6) 06/08/20 05:45 MCV 86 fl (84-94) 06/08/20 05:45 MCH 28 pg (28-32) 06/08/20 05:45 MCHC 33 % (32-34) 06/08/20 05:45 RDW 14.0 % (13.2-15.2) 06/08/20 05:45 Plt Count 170 K/mm3 (140-440) 06/08/20 05:45 Lymph % (Auto) 41.0 % (13.4-35.0) H 06/08/20 05:45 [place] % (Auto) 5.8 % (0.0-7.3) 06/08/20 05:45 Eos % (Auto) 1.8 % (0.0-4.3) 06/08/20 05:45 Baso % (Auto) 0.4 % (0.0-1.8) 06/08/20 05:45 Lymph # (Auto) 2.5 K/mm3 (1.2-5.4) 06/08/20 05:45 [place] # (Auto) 0.3 K/mm3 (0.0-0.8) 06/08/20 05:45 Eos # (Auto) 0.1 K/mm3 (0.0-0.4) 06/08/20 05:45 Baso # (Auto) 0.0 K/mm3 (0.0-0.1) 06/08/20 05:45 Seg Neutrophils % 51.0 % (40.0-70.0) 06/08/20 05:45 Seg Neutrophils # 3.1 K/mm3 (1.8-7.7) 06/08/20 05:45 Sodium 141 mmol/L (137-145) 06/08/20 05:45 Potassium 4.4 mmol/L (3.6-5.0) 06/08/20 05:45 Chloride 104.9 mmol/L (98-107) 06/08/20 05:45 Carbon Dioxide 27 mmol/L (22-30) 06/08/20 05:45 Anion Gap 14 mmol/L 06/08/20 05:45 BUN 9 mg/dL (9-20) 06/08/20 05:45 Creatinine 1.0 mg/dL (0.8-1.3) 06/08/20 05:45 Estimated GFR > 60 ml/min 06/08/20 05:45 BUN/Creatinine Ratio 9 % 06/08/20 05:45 Glucose 93 mg/dL (75-100) 06/08/20 05:45 POC Glucose 93 mg/dL (70-105) 06/07/20 03:46 Calcium 9.2 mg/dL (8.4-10.2) 06/08/20 05:45 Total Bilirubin < 0.20 mg/dL (0.1-1.2) 06/08/20 05:45 AST 14 units/L (5-40) 06/08/20 05:45 ALT 13 units/L (7-56) 06/08/20 05:45 Alkaline Phosphatase 62 units/L (35-129) 06/08/20 05:45 Total Protein 6.2 g/dL (6.3-8.2) L 06/08/20 05:45 Albumin 3.7 g/dL (3.9-5) L 06/08/20 05:45 Albumin/Globulin Ratio 1.5 % 06/08/20 05:45 Triglycerides 72 mg/dL (2-149) 06/08/20 05:45 Cholesterol 142 mg/dL (50-199) 06/08/20 05:45 LDL Cholesterol Direct 89 mg/dL (50-130) 06/08/20 05:45 HDL Cholesterol 50 mg/dL (40-59) 06/08/20 05:45 Cholesterol/HDL Ratio 2.84 % 06/08/20 05:45 TSH 1.590 mlU/mL (0.270-4.200) 06/08/20 05:45 Valproic Acid 75.8 ug/mL (50-100) 06/12/20 10:40 Last Vital Signs Temp 97.7 F 06/14/20 08:53 Pulse 70 06/14/20 08:53 Resp 18 06/14/20 08:53 BP 94/56 06/14/20 08:53 Pulse Ox 95 06/14/20 08:53
[2020-06-14] MEDS: traZODone 50 MG TAB PO SCH (22:18)
[2020-06-14] MEDS: MELATONIN 5 MG TAB PO SCH (22:19)
[2020-06-15] MEDS: DIVALPROEX DR 500 MG TAB PO SCH ×2 (09:29→21:14)
[2020-06-15] MEDS: FLUoxetine 20 MG CAP PO SCH (09:29)
[2020-06-15] MEDS: risperiDONE 1 MG TAB PO SCH ×2 (09:29→21:14)
--- NOTE | 2020-06-15 11:40 | Progress Note ---
Subjective Date of service: 06/15/20 Principal diagnosis: Schizoaffective disorder, bipolar type Subjective Comment: During my interview with the patient today, he is a/o x 3. He is sitting in the dayroom awake. He says he is doing "alright." He denies SI/HI or hallucinations of any kind. Reason for continued inpatient treatment: The patient has improved significantly. He is awaiting placement to ensue a safe discharge. REVIEW OF SYSTEMS Constitutional: Negative for weight loss ENT: Negative for stridor Respiratory: Negative for cough or hemoptysis All other systems reviewed and are negative MENTAL STATUS EXAMINATION General Appearance and Behavior: Age appropriate, good hygiene, not wearing appropriate clothes, poor eye contact, cooperative and polite with questioning. Cooperation: Participating/engaged Psychomotor Behavior: Psychomotor normal Mood: "alright" Affect and affective range: congruent with mood Thought Process: logical Thought Content: within reality Speech: regular rate and rhythm Intellectual Functioning: Average Suicidal Ideation: Denies, possibly not forthcoming Homicidal Ideation: Denies HIl Impulse Control: Impaired Insight and Judgment: Limited insight and judgment Memory: Normal, Attention: attention intact Orientation: Alert, oriented, Assessment and Plan (1) Schizoaffective disorder, bipolar type Current Visit: Yes Status: Acute Treatment Plan Patient admitted for inpatient psychiatric evaluation, medication adjustment and close monitoring The patient's behavior, mood, sleep and appetite will be closely monitored. Patient enrolled in individual and group therapeutic sessions and encouraged to attend. Patient provided with a safe and structured environment. Patient's physical health needs will be addressed by the Hospitalist. Hospitalist Consulted Labs including CBC, CMP, Lipid profile and Hemoglobin A1C levels ordered for baseline reference Social Assessment will be completed and the [facility] will work with patient and family to ensure a suitable and safe disposition Medication adjustment will be made as clinically indicated No changes today Usual Wellness Restorationism/Preservation: - Start Trazodone 50 mg po QHS & 50 mg po QHS PRN between 10 PM & 2 AM for insomnia - Start Melatonin 5 mg po QHS to promote circadian rhythm - Start [place]-3 for brain health, reduce impulsivity, and as adjunctive treatment for mood disorder, continue upon discharge given overall benefits. - Start B1 prophylaxis with 200 mg po for 5 days The patient agreed on the treatment plan, understood the risk, benefit, alternative treatment, potential consequence of no treatment, and gave informed consent. Estimated days: 3 Post hospital care: primary care provider, psychiatric provider Medications and Allergies Allergies Allergy/AdvReac Type Severity Reaction Status Date / Time No Known Allergies Allergy Unverified 06/06/20 16:55 Home Medications Medication Instructions Recorded Confirmed Last Taken Type Depakote Dr 1,000 mg PO HS 06/07/20 06/07/[address] 500 mg PO DAILY 06/07/20 06/07/20 Unknown History Melatonin 3 mg PO HS 06/07/20 06/07/20 Unknown History Prozac 20 mg PO DAILY 06/07/20 06/07/20 Unknown History RisperDAL 2 mg PO HS 06/07/20 06/07/20 Unknown History Active Meds: Active Medications Divalproex Sodium (Depakote Dr) 500 mg PO BID [facility] Last Admin: 06/15/20 09:29 Dose: 500 mg Documented by: Fluoxetine HCl (Prozac) 40 mg PO QDAY [facility] Last Admin: 06/15/20 09:29 Dose: 40 mg Documented by: Lorazepam (Ativan) 2 mg IM Q4HR PRN PRN Reason: Agitation Last Admin: 06/07/20 10:38 Dose: 2 mg Documented by: Melatonin (Melatonin) 5 mg PO QHS [facility] Last Admin: 06/14/20 22:19 Dose: 5 mg Documented by: Risperidone (Risperdal) 2 mg PO BID [facility] Last Admin: 06/15/20 09:29 Dose: 2 mg Documented by: Trazodone HCl (Desyrel) 50 mg PO QHS [facility] Last Admin: 06/14/20 22:18 Dose: 50 mg Documented by: Ziprasidone (Geodon) 15 mg IM Q4H PRN PRN Reason: Agitation Last Admin: 06/07/20 10:37 Dose: 15 mg Documented by: Results - Results Labs/Vitals: Laboratory Last Values WBC 6.1 K/mm3 (4.5-11.0) 06/08/20 05:45 RBC 4.45 M/mm3 (3.65-5.03) 06/08/20 05:45 Hgb 12.6 gm/dl (11.8-15.2) 06/08/20 05:45 Hct 38.1 % (35.5-45.6) 06/08/20 05:45 MCV 86 fl (84-94) 06/08/20 05:45 MCH 28 pg (28-32) 06/08/20 05:45 MCHC 33 % (32-34) 06/08/20 05:45 RDW 14.0 % (13.2-15.2) 06/08/20 05:45 Plt Count 170 K/mm3 (140-440) 06/08/20 05:45 Lymph % (Auto) 41.0 % (13.4-35.0) H 06/08/20 05:45 [place] % (Auto) 5.8 % (0.0-7.3) 06/08/20 05:45 Eos % (Auto) 1.8 % (0.0-4.3) 06/08/20 05:45 Baso % (Auto) 0.4 % (0.0-1.8) 06/08/20 05:45 Lymph # (Auto) 2.5 K/mm3 (1.2-5.4) 06/08/20 05:45 [place] # (Auto) 0.3 K/mm3 (0.0-0.8) 06/08/20 05:45 Eos # (Auto) 0.1 K/mm3 (0.0-0.4) 06/08/20 05:45 Baso # (Auto) 0.0 K/mm3 (0.0-0.1) 06/08/20 05:45 Seg Neutrophils % 51.0 % (40.0-70.0) 06/08/20 05:45 Seg Neutrophils # 3.1 K/mm3 (1.8-7.7) 06/08/20 05:45 Sodium 141 mmol/L (137-145) 06/08/20 05:45 Potassium 4.4 mmol/L (3.6-5.0) 06/08/20 05:45 Chloride 104.9 mmol/L (98-107) 06/08/20 05:45 Carbon Dioxide 27 mmol/L (22-30) 06/08/20 05:45 Anion Gap 14 mmol/L 06/08/20 05:45 BUN 9 mg/dL (9-20) 06/08/20 05:45 Creatinine 1.0 mg/dL (0.8-1.3) 06/08/20 05:45 Estimated GFR > 60 ml/min 06/08/20 05:45 BUN/Creatinine Ratio 9 % 06/08/20 05:45 Glucose 93 mg/dL (75-100) 06/08/20 05:45 POC Glucose 93 mg/dL (70-105) 06/07/20 03:46 Calcium 9.2 mg/dL (8.4-10.2) 06/08/20 05:45 Total Bilirubin < 0.20 mg/dL (0.1-1.2) 06/08/20 05:45 AST 14 units/L (5-40) 06/08/20 05:45 ALT 13 units/L (7-56) 06/08/20 05:45 Alkaline Phosphatase 62 units/L (35-129) 06/08/20 05:45 Total Protein 6.2 g/dL (6.3-8.2) L 06/08/20 05:45 Albumin 3.7 g/dL (3.9-5) L 06/08/20 05:45 Albumin/Globulin Ratio 1.5 % 06/08/20 05:45 Triglycerides 72 mg/dL (2-149) 06/08/20 05:45 Cholesterol 142 mg/dL (50-199) 06/08/20 05:45 LDL Cholesterol Direct 89 mg/dL (50-130) 06/08/20 05:45 HDL Cholesterol 50 mg/dL (40-59) 06/08/20 05:45 Cholesterol/HDL Ratio 2.84 % 06/08/20 05:45 TSH 1.590 mlU/mL (0.270-4.200) 06/08/20 05:45 Valproic Acid 75.8 ug/mL (50-100) 06/12/20 10:40 Last Vital Signs Temp 97.7 F 06/14/20 20:05 Pulse 62 06/14/20 20:05 Resp 16 06/14/20 20:05 BP 96/64 06/14/20 20:05 Pulse Ox 99 06/14/20 20:05
[2020-06-15] MEDS: traZODone 50 MG TAB PO SCH (21:14)
[2020-06-15] MEDS: MELATONIN 5 MG TAB PO SCH (21:14)
[2020-06-15 21:15] VITALS: BP 102/61
--- NOTE | 2020-06-16 08:25 | Discharge Summary ---
Providers - Providers Date of Admission: 06/07/20 03:10 Date of discharge: 06/16/20 Attending physician: EULOGIO MONDRAGON MD 06/06/20 16:55 Consult to Physician [CONS] Routine Comment: Consulting Provider: MARJAN HAQ Physician Instructions: Reason For Exam: Medical Management [facility] Reason for admission: Depression Admitting Diagnosis: F33.9 - MAJOR DEPRESSIVE DISORDER, RECURRENT, UNSPECIFIED Hospital course: The patient was provided inpatient psychiatric treatment with safe and supportive care, medication adjustment, adverse effect monitoring, medical evaluations, medical treatments, assessment and psycho-education. The patient's mood, cognition, behavior, moral support are improved and stabilized. St the time of discharge, the patient had no endangering behavior and no debilitating adverse effects. The patient agreed on potential consequences of no treatment and gave informed consent. Disposition: - TO HOME OR SELFCARE Time spent for discharge: 35 Allergies/Adverse Reactions: Allergies No Known Allergies Allergy (Unverified 06/06/20 16:55) Vital Signs: Last Vital Signs Temp 97.6 F 06/15/20 19:51 Pulse 63 06/15/20 19:51 Resp 16 06/15/20 19:51 BP 102/61 06/15/20 19:51 Pulse Ox 96 06/15/20 19:51 Last Lab: Laboratory Last Values WBC 6.1 K/mm3 (4.5-11.0) 06/08/20 05:45 RBC 4.45 M/mm3 (3.65-5.03) 06/08/20 05:45 Hgb 12.6 gm/dl (11.8-15.2) 06/08/20 05:45 Hct 38.1 % (35.5-45.6) 06/08/20 05:45 MCV 86 fl (84-94) 06/08/20 05:45 MCH 28 pg (28-32) 06/08/20 05:45 MCHC 33 % (32-34) 06/08/20 05:45 RDW 14.0 % (13.2-15.2) 06/08/20 05:45 Plt Count 170 K/mm3 (140-440) 06/08/20 05:45 Lymph % (Auto) 41.0 % (13.4-35.0) H 06/08/20 05:45 [place] % (Auto) 5.8 % (0.0-7.3) 06/08/20 05:45 Eos % (Auto) 1.8 % (0.0-4.3) 06/08/20 05:45 Baso % (Auto) 0.4 % (0.0-1.8) 06/08/20 05:45 Lymph # (Auto) 2.5 K/mm3 (1.2-5.4) 06/08/20 05:45 [place] # (Auto) 0.3 K/mm3 (0.0-0.8) 06/08/20 05:45 Eos # (Auto) 0.1 K/mm3 (0.0-0.4) 06/08/20 05:45 Baso # (Auto) 0.0 K/mm3 (0.0-0.1) 06/08/20 05:45 Seg Neutrophils % 51.0 % (40.0-70.0) 06/08/20 05:45 Seg Neutrophils # 3.1 K/mm3 (1.8-7.7) 06/08/20 05:45 Sodium 141 mmol/L (137-145) 06/08/20 05:45 Potassium 4.4 mmol/L (3.6-5.0) 06/08/20 05:45 Chloride 104.9 mmol/L (98-107) 06/08/20 05:45 Carbon Dioxide 27 mmol/L (22-30) 06/08/20 05:45 Anion Gap 14 mmol/L 06/08/20 05:45 BUN 9 mg/dL (9-20) 06/08/20 05:45 Creatinine 1.0 mg/dL (0.8-1.3) 06/08/20 05:45 Estimated GFR > 60 ml/min 06/08/20 05:45 BUN/Creatinine Ratio 9 % 06/08/20 05:45 Glucose 93 mg/dL (75-100) 06/08/20 05:45 POC Glucose 93 mg/dL (70-105) 06/07/20 03:46 Calcium 9.2 mg/dL (8.4-10.2) 06/08/20 05:45 Total Bilirubin < 0.20 mg/dL (0.1-1.2) 06/08/20 05:45 AST 14 units/L (5-40) 06/08/20 05:45 ALT 13 units/L (7-56) 06/08/20 05:45 Alkaline Phosphatase 62 units/L (35-129) 06/08/20 05:45 Total Protein 6.2 g/dL (6.3-8.2) L 06/08/20 05:45 Albumin 3.7 g/dL (3.9-5) L 06/08/20 05:45 Albumin/Globulin Ratio 1.5 % 06/08/20 05:45 Triglycerides 72 mg/dL (2-149) 06/08/20 05:45 Cholesterol 142 mg/dL (50-199) 06/08/20 05:45 LDL Cholesterol Direct 89 mg/dL (50-130) 06/08/20 05:45 HDL Cholesterol 50 mg/dL (40-59) 06/08/20 05:45 Cholesterol/HDL Ratio 2.84 % 06/08/20 05:45 TSH 1.590 mlU/mL (0.270-4.200) 06/08/20 05:45 Valproic Acid 75.8 ug/mL (50-100) 06/12/20 10:40 Core Measure Documentation - Palliative Care Palliative Care/ Comfort Measures: Not Applicable - Core Measures Any of the following diagnoses?: none Exam - Constitutional Vitals: Temp Pulse Resp BP Pulse Ox 97.6 F 63 16 102/61 96 06/15/20 19:51 06/15/20 19:51 06/15/20 19:51 06/15/20 19:51 06/15/20 19:51 General appearance: Present: no acute distress - EENT Eyes: Present: PERRL, EOM intact ENT: hearing intact, clear oral mucosa - Neck Neck: Present: supple, normal ROM - Respiratory Respiratory effort: normal Plan Activity: advance as tolerated Weight Bearing Status: Weight Bear as Tolerated Care Plan Goals: Maintain good and stable mental health Plan of Treatment: The patient should be compliant with medications, not to use drugs, and not to drink alcohol. The patient understands that if suicidal ideas, homicidal ideas or any endangering feeling arise, the patient should seek assistance including, but not limited to crisis hotline, and emergency room. Assessment: Major Depressive Disorder Follow up with: RAFIA ELIZABETH MD [Primary Care Provider] - 7 Days Prescriptions: traZODone [Desyrel] 50 mg PO QHS #30 tablet Melatonin [Melatonin 5MG TAB] 5 mg PO QHS #30 tablet Divalproex [Aviva Conti] 500 mg PO BID #60 tablet FLUoxetine [PROzac] 40 mg PO QDAY #60 capsule RisperDAL 2 mg PO BID 30 Days
[2020-06-16] MEDS: FLUoxetine 20 MG CAP PO SCH (09:37)
[2020-06-16] MEDS: risperiDONE 1 MG TAB PO SCH (09:37)
[2020-06-16] MEDS: DIVALPROEX DR 500 MG TAB PO SCH (09:37)
--- NOTE | 2020-06-16 13:21 | Progress Note ---
Assessment and Plan - Patient Problems (1) Schizoaffective disorder, bipolar type Current Visit: Yes Status: Acute Plan to address problem: Supportive care, continue current management, cognitive behavioral therapy. As per primary team (2) Nicotine dependence Current Visit: Yes Status: Acute Qualifiers: Nicotine product type: cigarettes Substance use status: in withdrawal Qualified Code(s): F17.213 - Nicotine dependence, cigarettes, with withdrawal Plan to address problem: Smoking cessation counseling, supportive care, behavior change counseling, +15 minutes. History Interval history: 55 YO Male with Nicotine Dependence, Bipolar Disorder, Schizophrenia admitted to [facility] for Psychiatric stabilization. Patient seen and evaluated in the recreation room. Patient resting comfortably. Patient denies fever, ch ills, chest pain. No reported nursing events. Hospitalist Physical - Constitutional Vitals: Temp Pulse Resp BP Pulse Ox 97.6 F 63 16 102/61 96 06/15/20 19:51 06/15/20 19:51 06/15/20 19:51 06/15/20 19:51 06/15/20 19:51 General appearance: Present: no acute distress - EENT Eyes: Present: PERRL, EOM intact ENT: hearing intact - Neck Neck: Present: supple - Respiratory Respiratory effort: normal Respiratory: bilateral: CTA - Cardiovascular Rhythm: regular Heart Sounds: Present: S1 & S2 - Extremities Extremities: no ischemia Peripheral Pulses: within normal limits - Abdominal General gastrointestinal: soft, non-tender, non-distended - Integumentary Integumentary: Present: clear, dry - Psychiatric Psychiatric: cooperative - Neurologic Neurologic: CNII-XII intact Results - Labs CBC & Chem 7: 06/08/20 05:45 06/08/20 05:45 Labs: Laboratory Last Values WBC 6.1 K/mm3 (4.5-11.0) 06/08/20 05:45 RBC 4.45 M/mm3 (3.65-5.03) 06/08/20 05:45 Hgb 12.6 gm/dl (11.8-15.2) 06/08/20 05:45 Hct 38.1 % (35.5-45.6) 06/08/20 05:45 MCV 86 fl (84-94) 06/08/20 05:45 MCH 28 pg (28-32) 06/08/20 05:45 MCHC 33 % (32-34) 06/08/20 05:45 RDW 14.0 % (13.2-15.2) 06/08/20 05:45 Plt Count 170 K/mm3 (140-440) 06/08/20 05:45 Lymph % (Auto) 41.0 % (13.4-35.0) H 06/08/20 05:45 [place] % (Auto) 5.8 % (0.0-7.3) 06/08/20 05:45 Eos % (Auto) 1.8 % (0.0-4.3) 06/08/20 05:45 Baso % (Auto) 0.4 % (0.0-1.8) 06/08/20 05:45 Lymph # (Auto) 2.5 K/mm3 (1.2-5.4) 06/08/20 05:45 [place] # (Auto) 0.3 K/mm3 (0.0-0.8) 06/08/20 05:45 Eos # (Auto) 0.1 K/mm3 (0.0-0.4) 06/08/20 05:45 Baso # (Auto) 0.0 K/mm3 (0.0-0.1) 06/08/20 05:45 Seg Neutrophils % 51.0 % (40.0-70.0) 06/08/20 05:45 Seg Neutrophils # 3.1 K/mm3 (1.8-7.7) 06/08/20 05:45 Sodium 141 mmol/L (137-145) 06/08/20 05:45 Potassium 4.4 mmol/L (3.6-5.0) 06/08/20 05:45 Chloride 104.9 mmol/L (98-107) 06/08/20 05:45 Carbon Dioxide 27 mmol/L (22-30) 06/08/20 05:45 Anion Gap 14 mmol/L 06/08/20 05:45 BUN 9 mg/dL (9-20) 06/08/20 05:45 Creatinine 1.0 mg/dL (0.8-1.3) 06/08/20 05:45 Estimated GFR > 60 ml/min 06/08/20 05:45 BUN/Creatinine Ratio 9 % 06/08/20 05:45 Glucose 93 mg/dL (75-100) 06/08/20 05:45 POC Glucose 93 mg/dL (70-105) 06/07/20 03:46 Calcium 9.2 mg/dL (8.4-10.2) 06/08/20 05:45 Total Bilirubin < 0.20 mg/dL (0.1-1.2) 06/08/20 05:45 AST 14 units/L (5-40) 06/08/20 05:45 ALT 13 units/L (7-56) 06/08/20 05:45 Alkaline Phosphatase 62 units/L (35-129) 06/08/20 05:45 Total Protein 6.2 g/dL (6.3-8.2) L 06/08/20 05:45 Albumin 3.7 g/dL (3.9-5) L 06/08/20 05:45 Albumin/Globulin Ratio 1.5 % 06/08/20 05:45 Triglycerides 72 mg/dL (2-149) 06/08/20 05:45 Cholesterol 142 mg/dL (50-199) 06/08/20 05:45 LDL Cholesterol Direct 89 mg/dL (50-130) 06/08/20 05:45 HDL Cholesterol 50 mg/dL (40-59) 06/08/20 05:45 Cholesterol/HDL Ratio 2.84 % 06/08/20 05:45 TSH 1.590 mlU/mL (0.270-4.200) 06/08/20 05:45 Valproic Acid 75.8 ug/mL (50-100) 06/12/20 10:40 [place]/IV: Voiding Method Toilet Active Medications - Current Medications Current Medications: Generic Name Dose Route Start Last Admin Trade Name Freq PRN Reason Stop Dose Admin Divalproex Sodium 500 mg 06/07/20 10:00 06/16/20 09:[address] PO 500 mg BID PAULETTE Administration Fluoxetine HCl 40 mg 06/11/20 10:00 06/16/20 09:37 Prozac PO 40 mg QDAY PAULETTE Administration Lorazepam 2 mg 06/07/20 07:54 06/07/20 10:38 Ativan IM 2 mg Q4HR PRN Administration Agitation Melatonin 5 mg 06/06/20 22:00 06/15/20 21:14 Melatonin PO 5 mg QHS PAULETTE Administration Risperidone 2 mg 06/07/20 10:00 06/16/20 09:37 Risperdal PO 2 mg BID PAULETTE Administration Trazodone HCl 50 mg 06/06/20 22:00 06/15/20 21:14 Desyrel PO 50 mg QHS PAULETTE Administration Ziprasidone 15 mg 06/07/20 07:54 06/07/20 10:37 Geodon IM 15 mg Q4H PRN Administration Agitation Nutrition/Malnutrition Assess - Dietary Evaluation Nutrition/Malnutrition Findings: Nutrition Notes Start: 06/14/20 08:55 Freq: Status: Active Protocol: Document 06/14/20 08:58 ARIEL (Rec: 06/14/20 10:16 ARIEL [id number]) Co-Sign 06/14/20 08:58 NHALL Nutrition Notes Need for Assessment generated from: LOS Initial or Follow up Brief Note Subjective/Other Information Pt screened for LOS. Per chart , pt consuming 75-100% meals. Pt meeting 100% energy and protein needs via PO intakes. Nutrition Intervention Revisit per MD consult or patient Sign Off request:
== END 2020-06-16 13:35 | disposition home or self-care (01) | DRG 885 ==
LOC: UNDOADMIN 16:31 → 3A 16:31 → 5A 06-07 03:10
PROVIDERS: ADMIT Psychiatry & Neurology Psychiatry; ATTEND Psychiatry & Neurology Psychiatry
DX: F33.9 Major depressive disorder, recurrent, unspecified (principal); F17.213 Nicotine dependence, cigarettes, with withdrawal; F25.0 Schizoaffective disorder, bipolar type; T60.4X1A Toxic effect of rodenticides, accidental (unintentional), initial encounter; Y92.89 Other specified places as the place of occurrence of the external cause; Z56.0 Unemployment, unspecified; Z79.899 Other long term (current) drug therapy; Z79.01 Long term (current) use of anticoagulants; Z79.891 Long term (current) use of opiate analgesic
CPT/HCPCS: 36415; 80053; 80061; 80164; 82962; 84443; 85025; G0378; J2060; J3486

== ENCOUNTER 2020-08-31 07:42 | Inpatient (IN) | payer MEDICARE ==
--- NOTE | 2020-09-01 08:01 | History and Physical Report ---
GP History & Physical - History of Present Illness Date of admission: 08/31/20 Date of Examination: 09/01/20 Reason for Admission: Danger to self, Impaired reality testing, Psychopathology interference History of Present Illness: HPI Patient is a 55-year-old single without children, currently unemployed on disability income -Central African male who currently resides in a detention with past psychiatric history of bipolar and schizophrenia who was brought in from [facility] after initially presenting day with EMS due to not eating for several days and locking himself up in room, and endorsing suicidal ideation. Patient is known to me from prior encounter, today patient stated he is here because he does not have anywhere to stay and he began asking for food, then walked away from interview. PAST PSYCHIATRIC HISTORY: Diagnoses: Bipolar and schizophrenia Suicide attempts or Self-harm behavior: None reported Prior psychiatric hospitalizations; yes Substance Abuse history: Crack cocaine Previous psychiatric medications tried: Yes Outpatient treatment: No response PAST MEDICAL HISTORY: No significant past medical history Family Psychiatric History: None reported or documented SOCIAL HISTORY Marital Status: Single Living Arrangements: prison Employment Status: Unemployed on [employer] Access to guns/weapons: None reported Education: High school History of Abuse: None reported Legal History: None reported REVIEW OF SYSTEMS Constitutional: Negative for weight loss ENT: Negative for stridor Respiratory: Negative for cough or hemoptysis All other systems reviewed and are negative MENTAL STATUS EXAMINATION General Appearance and Behavior: Age appropriate, good hygiene, not wearing appropriate clothes, good eye contact, uncooperative and irritable with questioning. Cooperation: Participating but withdrawn and guarded Psychomotor Behavior: Psychomotor agitation Mood: Good Affect and affective range: euthymic, euphoric, irritable Thought Process:Circumstantial, Illogical, Thought Content: Flight of ideas, Illogical, Grandiose, Speech: pressured, loud volume at times Intellectual Functioning: Average Suicidal Ideation: Denies SI Homicidal Ideation: Denies HIl Impulse Control: Impaired Insight and Judgment: Limited insight and judgment Memory: Normal, Attention: Divided attention impaired Orientation: Alert, oriented, Assessment and Plan - Psychiatric problem (1) Schizoaffective disorder, bipolar type Current Visit: Yes Status: Acute F25.0 Treatment Plan Patient's blood pressure is currently low, nurse aware to hold off statin psych medication to patient evaluated by hospital Resume home medications, Risperdal increased to 2 mg twice daily Patient admitted for inpatient psychiatric evaluation, medication adjustment and close monitoring The patient's behavior, mood, sleep and appetite will be closely monitored. Patient enrolled in individual and group therapeutic sessions and encouraged to attend. Patient provided with a safe and structured environment. Patient's physical health needs will be addressed by the Hospitalist. Hospitalist Consulted Labs including CBC, CMP, Lipid profile and Hemoglobin A1C levels ordered for baseline reference Social Assessment will be completed and the Porcelain Enameling Supervisor will work with patient and family to ensure a suitable and safe disposition Medication adjustment will be made as clinically indicated Usual Wellness Congregational/Preservation: - Start Trazodone 50 mg po QHS & 50 mg po QHS PRN between 10 PM & 2 AM for insomnia - Start Melatonin 5 mg po QHS to promote circadian rhythm - Start [place]-3 for brain health, reduce impulsivity, and as adjunctive treatment for mood disorder, continue upon discharge given overall benefits. - Start B1 prophylaxis with 200 mg po for 5 days The patient agreed on the treatment plan, understood the risk, benefit, alternative treatment, potential consequence of no treatment, and gave informed consent. Initial Certification Inpatient psych services: I certify that the inpatient psychiatric services are required for treatment that could reasonably be expected to improve the patient's condition. Estimated days: 7 Post hospital care: primary care provider, psychiatric provider Legal Status: Voluntary Reaction to Hospitalization: Accepting Medications and Allergies Allergies Allergy/AdvReac Type Severity Reaction Status Date / Time No Known Allergies Allergy Unverified 06/06/20 16:55 Home Medications Medication Instructions Recorded Confirmed Last Taken Type Divalproex Dr [Matthiaste Dr] 500 mg PO BID #60 tablet 06/16/20 08/31/20 Unknown Rx FLUoxetine [PROzac] 40 mg PO QDAY #60 capsule 06/16/20 08/31/20 Unknown Rx Melatonin [Melatonin 5MG TAB] 5 mg PO QHS #30 tablet 06/16/20 08/31/20 Unknown Rx traZODone [Desyrel] 50 mg PO QHS #30 tablet 06/16/20 08/31/20 Unknown Rx risperiDONE [RisperDAL] 2 mg PO BID 08/31/20 08/31/20 Unknown History Results - Results Labs/Vitals: Last Vital Signs Temp 97.5 F L 08/31/20 17:40 Pulse 71 08/31/20 17:40 Resp 20 08/31/20 17:40 BP 110/66 08/31/20 17:40 Pulse Ox 96 08/31/20 17:40 Physical Examination - Constitutional Vitals: Vital Signs Temp Pulse Resp BP Pulse Ox 97.5 F L 71 20 110/66 96 08/31/20 17:40 08/31/20 17:40 08/31/20 17:40 08/31/20 17:40 08/31/20 17:40 Temperature -Last 24 Hours Temperature 97.5 F Mental Status Exam - Vital signs Last Vital Signs Temp 97.5 F L 08/31/20 17:40 Pulse 71 08/31/20 17:40 Resp 20 08/31/20 17:40 BP 110/66 08/31/20 17:40 Pulse Ox 96 08/31/20 17:40 Assessment and Plan - Psychiatric problem (1) Schizoaffective disorder, bipolar type Current Visit: No Status: Acute Physician Certification - Certification Statement Physician Certification Statement: This is an acknowledgement statement that MIGUEL ÁNGEL ULLOA is a 55 year old M who requires inpatient psychiatric admission for treatment which could reasonably be expected to improve the patient's condition for Estimated period of time patient will need to remain in the hospital: [ ] Plan for post-hospital care: [ ]
[2020-09-01 09:36] LABS: Basophils % (Auto) 0.5 % (0.0-1.8); Eosinophils # (Auto) 0.1 K/mm3 (0.0-0.4); Eosinophils % (Auto) 0.9 % (0.0-4.3); Hematocrit 43.3 % (35.5-45.6); Hemoglobin 14.3 gm/dl (11.8-15.2); Lymphocytes % (Auto) 29.7 % (13.4-35.0); Mean Corpuscular HGB Conc 33 % (32-34); Mean Corpuscular Volume 87 fl (84-94); Monocytes # (Auto) 0.4 K/mm3 (0.0-0.8); Monocytes % (Auto) 5.6 % (0.0-7.3); Platelet Count 260 K/mm3 (140-440); Red Blood Count 5.01 M/mm3 (3.65-5.03); Red Cell Distribution Width 14.7 % (13.2-15.2)
[2020-09-01 10:01] LABS: Alanine Aminotransferase 17 units/L (7-56); Albumin 4.1 g/dL (3.9-5); BUN/Creatinine Ratio 18; Blood Urea Nitrogen 24 mg/dL (9-20); Calcium 9.5 mg/dL (8.4-10.2); Chol/HDL Ratio 3.26 %; HDL Cholesterol 56 mg/dL (40-59); Hemolysis Index 6; LDL Cholesterol,Direct 129 mg/dL (50-130)
--- NOTE | 2020-09-01 11:18 | Consultation ---
History of Present Illness - Reason for Consult Consult date: 09/02/20 Medical consult Requesting physician: EULOGIO MONDRAGON - History of Present Illness 55-year-old -Albanian male patient resident of [facility] with no significant past medical history however has past psychiatric history of bipolar and schizophrenia was admitted to [facility] in [facility] for further evaluation and management . Hospitalist service was requested for medical consult. Patient does not have any medical history. Patient denies diabetes mellitus or hypertension, does not have history of coronary artery disease Not on any medications per medical records Patient denies any chest pain or shortness of breath Denies any headache or dizziness No other complaints Past History Past Medical History: No medical history, other (Bipolar, schizophrenia) Past Surgical History: No surgical history Social history: smoking, alcohol abuse, other (Denies recreational drug use) Family history: no significant family history Medications and Allergies Allergies Allergy/AdvReac Type Severity Reaction Status Date / Time No Known Allergies Allergy Unverified 06/06/20 16:55 Home Medications Medication Instructions Recorded Confirmed Last Taken Type Divalproex [Aviva Conti] 500 mg PO BID #60 tablet 06/16/20 08/31/20 Unknown Rx FLUoxetine [PROzac] 40 mg PO QDAY #60 capsule 06/16/20 08/31/20 Unknown Rx Melatonin [Melatonin 5MG TAB] 5 mg PO QHS #30 tablet 06/16/20 08/31/20 Unknown Rx traZODone [Desyrel] 50 mg PO QHS #30 tablet 06/16/20 08/31/20 Unknown Rx risperiDONE [RisperDAL] 2 mg PO BID 08/31/20 08/31/20 Unknown History Active Meds: Active Medications Fluoxetine HCl (Fluoxetine 20 Mg Cap) 20 mg PO QDAY [facility] Olanzapine (Olanzapine 5 Mg Tab) 5 mg PO QHS [facility] Valproic Acid (Valproic Acid 250 Mg Cap) 250 mg PO BID [facility] Review of Systems Constitutional: weakness, no weight loss, no weight gain Ears, nose, mouth and throat: no nasal congestion, no nasal discharge Cardiovascular: no chest pain, no orthopnea, no palpitations Respiratory: no cough, no shortness of breath Gastrointestinal: no nausea, no vomiting, no diarrhea Genitourinary Male: no dysuria, no hematuria Musculoskeletal: no myalgias, no arthritis Integumentary: no rash, no lesions Neurological: no numbness, no tingling, no seizures Psychiatric: suicidal ideation, depression, no anxiety Endocrine: no cold intolerance, no heat intolerance Hematologic/Lymphatic: no easy bruising, no easy bleeding Allergic/Immunologic: no urticaria, no allergic rhinitis Exam - Constitutional Vitals: Temp Pulse Resp BP Pulse Ox 97.2 F L 78 17 92/67 99 09/01/20 09:05 09/01/20 09:05 09/01/20 09:05 09/01/20 09:05 09/01/20 09:05 General appearance: Present: no acute distress, well-nourished - EENT Eyes: Present: PERRL, EOM intact - Neck Neck: Present: supple, normal ROM - Respiratory Respiratory effort: normal Respiratory: bilateral: diminished, wheezing, negative: rales, rhonchi - Cardiovascular Rhythm: regular Heart Sounds: Present: S1 & S2 - Extremities Extremities: no ischemia, No edema - Abdominal General gastrointestinal: Present: soft, non-tender, non-distended, normal bowel sounds - Integumentary Integumentary: Present: clear, warm - Musculoskeletal Musculoskeletal: strength equal bilaterally - Psychiatric Psychiatric: appropriate mood/affect, cooperative, depressed - Neurologic Neurologic: CNII-XII intact, moves all extremities Results - Labs CBC & Chem 7: 09/01/20 08:53 09/01/20 08:53 Labs: Abnormal lab results 09/01/20 09/01/20 Range/Units 08:53 08:53 BUN 24 H (9-20) mg/dL Hemoglobin A1c 6.2 H (4-6) % Assessment and Plan --Suicidal ideation/thoughts; Management per psych --History of bipolar disorder; Continue current psych medications Management as per psych --History of schizoaffective disorder Continue current management Management per psych --DVT prophylaxis; SCDs while resting --History of tobacco use; smoking cessation counseling done Nicotine patch as needed Patient does not have any medical history. Continue supportive care Thank you for this consult We will follow the patient along with you as needed basis Call us with questions and concerns
[2020-09-01] MEDS: FLUoxetine 20 MG CAP PO SCH (14:00)
[2020-09-01] MEDS: VALPROIC ACID 250 MG CAP PO SCH ×3 (14:00→21:56)
--- NOTE | 2020-09-02 07:42 | Progress Note ---
Subjective Date of service: 09/02/20 Principal diagnosis: schizophrenia Subjective Comment: During my interview with the patient, he is lying down in bed awake. He states he "feels bad." The patient then states "I'm not well. I can't function right." He denies hallucinations of any kind. When asked about SI/HI, he states, "I wish I would just stop functioning and . I don't want to live anymore." Reason for continued inpatient treatment: The patient has passive suicidal thoughts REVIEW OF SYSTEMS Constitutional: Negative for weight loss ENT: Negative for stridor Respiratory: Negative for cough or hemoptysis All other systems reviewed and are negative MENTAL STATUS EXAMINATION General Appearance and Behavior: Age appropriate, good hygiene, not wearing appropriate clothes, good eye contact, calm and cooperative with questioning. Cooperation: Participating but withdrawn and guarded Psychomotor Behavior: Psychomotor agitation Mood: "not good" Affect and affective range: euthymic, euphoric Thought Process:Circumstantial, Illogical, Thought Content: SI Speech: normal tone and pace Suicidal Ideation: passive Homicidal Ideation: Denies HIl Impulse Control: Impaired Insight and Judgment: Limited insight and judgment Memory: Normal, Attention: Divided attention impaired Orientation: Alert, oriented Assessment and Plan (1) Schizoaffective disorder, bipolar type (F25.0) Current Visit: Yes Status: Acute Treatment Plan Patient's blood pressure is currently low, nurse aware to hold off statin psych medication to patient evaluated by hospital Patient admitted for inpatient psychiatric evaluation, medication adjustment and close monitoring The patient's behavior, mood, sleep and appetite will be closely monitored. Patient enrolled in individual and group therapeutic sessions and encouraged to attend. Patient provided with a safe and structured environment. Patient's physical health needs will be addressed by the Hospitalist. Hospitalist Consulted Labs including CBC, CMP, Lipid profile and Hemoglobin A1C levels ordered for baseline reference Valproic level 09/04 Social Assessment will be completed and the Egg Worker will work with patient and family to ensure a suitable and safe disposition Medication adjustment will be made as clinically indicated Restarted home Risperidone 2mg po BID D/c Olanzapine to prevent polypharmacy Changed depakote to DR and increased to 500mg po BID (the patient is on this formula at home) Usual Wellness Latter Day/Preservation: - Start Trazodone 50 mg po QHS & 50 mg po QHS PRN between 10 PM & 2 AM for insomnia - Start Melatonin 5 mg po QHS to promote circadian rhythm - Start [place]-3 for brain health, reduce impulsivity, and as adjunctive treatment for mood disorder, continue upon discharge given overall benefits. - Start B1 prophylaxis with 200 mg po for 5 days The patient agreed on the treatment plan, understood the risk, benefit, alternative treatment, potential consequence of no treatment, and gave informed consent. Estimated days: 5 Post hospital care: primary care provider, psychiatric provider Medications and Allergies Allergies Allergy/AdvReac Type Severity Reaction Status Date / Time No Known Allergies Allergy Unverified 06/06/20 16:55 Home Medications Medication Instructions Recorded Confirmed Last Taken Type Divalproex Dr [Depakote Dr] 500 mg PO BID #60 tablet 06/16/20 08/31/20 Unknown Rx FLUoxetine [PROzac] 40 mg PO QDAY #60 capsule 06/16/20 08/31/20 Unknown Rx Melatonin [Melatonin 5MG TAB] 5 mg PO QHS #30 tablet 06/16/20 08/31/20 Unknown R x traZODone [Desyrel] 50 mg PO QHS #30 tablet 06/16/20 08/31/20 Unknown Rx risperiDONE [RisperDAL] 2 mg PO BID 08/31/20 08/31/20 Unknown History Active Meds: Active Medications Fluoxetine HCl (Fluoxetine 20 Mg Cap) 20 mg PO QDAY [facility] Last Admin: 09/01/20 14:00 Dose: Not Given Documented by: Olanzapine (Olanzapine 5 Mg Tab) 5 mg PO QHS [facility] Last Admin: 09/01/20 21:57 Dose: Not Given Documented by: Valproic Acid (Valproic Acid 250 Mg Cap) 250 mg PO BID [facility] Last Admin: 09/01/20 21:56 Dose: Not Given Documented by: Results - Results Labs/Vitals: Laboratory Last Values WBC 6.7 K/mm3 (4.5-11.0) 09/01/20 08:53 RBC 5.01 M/mm3 (3.65-5.03) 09/01/20 08:53 Hgb 14.3 gm/dl (11.8-15.2) 09/01/20 08:53 Hct 43.3 % (35.5-45.6) 09/01/20 08:53 MCV 87 fl (84-94) 09/01/20 08:53 MCH 29 pg (28-32) 09/01/20 08:53 MCHC 33 % (32-34) 09/01/20 08:53 RDW 14.7 % (13.2-15.2) 09/01/20 08:53 Plt Count 260 K/mm3 (140-440) 09/01/20 08:53 Lymph % (Auto) 29.7 % (13.4-35.0) 09/01/20 08:53 [place] % (Auto) 5.6 % (0.0-7.3) 09/01/20 08:53 Eos % (Auto) 0.9 % (0.0-4.3) 09/01/20 08:53 Baso % (Auto) 0.5 % (0.0-1.8) 09/01/20 08:53 Lymph # (Auto) 2.0 K/mm3 (1.2-5.4) 09/01/20 08:53 [place] # (Auto) 0.4 K/mm3 (0.0-0.8) 09/01/20 08:53 Eos # (Auto) 0.1 K/mm3 (0.0-0.4) 09/01/20 08:53 Baso # (Auto) 0.0 K/mm3 (0.0-0.1) 09/01/20 08:53 Seg Neutrophils % 63.3 % (40.0-70.0) 09/01/20 08:53 Seg Neutrophils # 4.2 K/mm3 (1.8-7.7) 09/01/20 08:53 Sodium 139 mmol/L (137-145) 09/01/20 08:53 Potassium 3.7 mmol/L (3.6-5.0) 09/01/20 08:53 Chloride 101.1 mmol/L (98-107) 09/01/20 08:53 Carbon Dioxide 29 mmol/L (22-30) 09/01/20 08:53 Anion Gap 13 mmol/L 09/01/20 08:53 BUN 24 mg/dL (9-20) H 09/01/20 08:53 Creatinine 1.3 mg/dL (0.8-1.3) 09/01/20 08:53 Estimated GFR > 60 ml/min 09/01/20 08:53 BUN/Creatinine Ratio 18 % 09/01/20 08:53 Glucose 89 mg/dL (75-100) 09/01/20 08:53 Hemoglobin A1c 6.2 % (4-6) H 09/01/20 08:53 Calcium 9.5 mg/dL (8.4-10.2) 09/01/20 08:53 Total Bilirubin 0.40 mg/dL (0.1-1.2) 09/01/20 08:53 AST 21 units/L (5-40) 09/01/20 08:53 ALT 17 units/L (7-56) 09/01/20 08:53 Alkaline Phosphatase 70 units/L (35-129) 09/01/20 08:53 Total Protein 7.2 g/dL (6.3-8.2) 09/01/20 08:53 Albumin 4.1 g/dL (3.9-5) 09/01/20 08:53 Albumin/Globulin Ratio 1.3 % 09/01/20 08:53 Triglycerides 55 mg/dL (2-149) 09/01/20 08:53 Cholesterol 183 mg/dL (50-199) 09/01/20 08:53 LDL Cholesterol Direct 129 mg/dL (50-130) 09/01/20 08:53 HDL Cholesterol 56 mg/dL (40-59) 09/01/20 08:53 Cholesterol/HDL Ratio 3.26 % 09/01/20 08:53 TSH 1.400 mlU/mL (0.270-4.200) 09/01/20 08:53 Last Vital Signs Temp 98.4 F 09/01/20 19:46 Pulse 99 H 09/01/20 19:46 Resp 16 09/01/20 19:46 BP 107/72 09/01/20 19:46 Pulse Ox 98 09/01/20 19:46
[2020-09-02] MEDS: FLUoxetine 20 MG CAP PO SCH (09:20)
[2020-09-02] MEDS: DIVALPROEX DR 500 MG TAB PO SCH ×3 (09:20→22:24)
[2020-09-02] MEDS: risperiDONE 1 MG TAB PO SCH ×3 (09:20→22:25)
[2020-09-02] MEDS ORDERED: NON-FORMULARY EACH (Risperidone [Risperdal] 2 MG Tablet) PO SCH (10:00)
[2020-09-02] MEDS: traZODone 50 MG TAB PO SCH ×2 (22:20→22:25)
--- NOTE | 2020-09-03 08:46 | Progress Note ---
Subjective Date of service: 09/03/20 Principal diagnosis: schizophrenia Subjective Comment: During my interview with the patient, he is lying down in bed awake. He states he "feels bad." The patient denies active SI/HI but states he wishes he would . He then says "I don't think I have any room in me for any medicine today." Advised the patient that medication was apart of his regimen and he needed to comply in order to be inpatient. Reason for continued inpatient treatment: The patient has passive suicidal thoughts REVIEW OF SYSTEMS Constitutional: Negative for weight loss ENT: Negative for stridor Respiratory: Negative for cough or hemoptysis All other systems reviewed and are negative MENTAL STATUS EXAMINATION General Appearance and Behavior: Age appropriate, good hygiene, not wearing appropriate clothes, good eye contact, calm and cooperative with questioning. Cooperation: Participating but withdrawn and guarded Psychomotor Behavior: Psychomotor agitation Mood: "not good" Affect and affective range: euthymic, euphoric Thought Process:Circumstantial, Illogical, Thought Content: SI Speech: normal tone and pace Suicidal Ideation: passive Homicidal Ideation: Denies HIl Impulse Control: Impaired Insight and Judgment: Limited insight and judgment Memory: Normal, Attention: Divided attention impaired Orientation: Alert, oriented Assessment and Plan (1) Schizoaffective disorder, bipolar type (F25.0) Current Visit: Yes Status: Acute Treatment Plan Patient's blood pressure is currently low, nurse aware to hold off statin psych medication to patient evaluated by hospital Patient admitted for inpatient psychiatric evaluation, medication adjustment and close monitoring The patient's behavior, mood, sleep and appetite will be closely monitored. Patient enrolled in individual and group therapeutic sessions and encouraged to attend. Patient provided with a safe and structured environment. Patient's physical health needs will be addressed by the Hospitalist. Hospitalist Consulted Labs including CBC, CMP, Lipid profile and Hemoglobin A1C levels ordered for baseline reference Valproic level 09/04 Social Assessment will be completed and the Mallet And Die Cutter will work with patient and family to ensure a suitable and safe disposition Medication adjustment will be made as clinically indicated Continue changes made yesterday No changes made today Usual Wellness Christian/Preservation: - Start Trazodone 50 mg po QHS & 50 mg po QHS PRN between 10 PM & 2 AM for insomnia - Start Melatonin 5 mg po QHS to promote circadian rhythm - Start [place]-3 for brain health, reduce impulsivity, and as adjunctive treatment for mood disorder, continue upon discharge given overall benefits. - Start B1 prophylaxis with 200 mg po for 5 days The patient agreed on the treatment plan, understood the risk, benefit, alternative treatment, potential consequence of no treatment, and gave informed consent. Estimated days: 5 Post hospital care: primary care provider, psychiatric provider Medications and Allergies Allergies Allergy/AdvReac Type Severity Reaction Status Date / Time No Known Allergies Allergy Unverified 06/06/20 16:55 Home Medications Medication Instructions Recorded Confirmed Last Taken Type Divalproex Dr [Depakote Dr] 500 mg PO BID #60 tablet 06/16/20 08/31/20 Unknown Rx FLUoxetine [PROzac] 40 mg PO QDAY #60 capsule 06/16/20 08/31/20 Unknown Rx Melatonin [Melatonin 5MG TAB] 5 mg PO QHS #30 tablet 06/16/20 08/31/20 Unknown Rx traZODone [Desyrel] 50 mg PO QHS #30 tablet 06/16/20 08/31/20 Unknown Rx risperiDONE [RisperDAL] 2 mg PO BID 08/31/20 08/31/20 Unknown History Active Meds: Active Medications Divalproex Sodium (Divalproex Dr 500 Mg Tab) 500 mg PO BID [facility] Last Admin: 09/02/20 22:24 Dose: Not Given Documented by: Fluoxetine HCl (Fluoxetine 20 Mg Cap) 20 mg PO QDAY [facility] Last Admin: 09/02/20 09:20 Dose: 20 mg Documented by: Risperidone (Risperidone 1 Mg Tab) 2 mg PO BID [facility] Last Admin: 09/02/20 22:25 Dose: Not Given Documented by: Trazodone HCl (Trazodone 50 Mg Tab) 50 mg PO QHS [facility] Last Admin: 09/02/20 22:25 Dose: Not Given Documented by: Results - Results Labs/Vitals: Laboratory Last Values WBC 6.7 K/mm3 (4.5-11.0) 09/01/20 08:53 RBC 5.01 M/mm3 (3.65-5.03) 09/01/20 08:53 Hgb 14.3 gm/dl (11.8-15.2) 09/01/20 08:53 Hct 43.3 % (35.5-45.6) 09/01/20 08:53 MCV 87 fl (84-94) 09/01/20 08:53 MCH 29 pg (28-32) 09/01/20 08:53 MCHC 33 % (32-34) 09/01/20 08:53 RDW 14.7 % (13.2-15.2) 09/01/20 08:53 Plt Count 260 K/mm3 (140-440) 09/01/20 08:53 Lymph % (Auto) 29.7 % (13.4-35.0) 09/01/20 08:53 [place] % (Auto) 5.6 % (0.0-7.3) 09/01/20 08:53 Eos % (Auto) 0.9 % (0.0-4.3) 09/01/20 08:53 Baso % (Auto) 0.5 % (0.0-1.8) 09/01/20 08:53 Lymph # (Auto) 2.0 K/mm3 (1.2-5.4) 09/01/20 08:53 [place] # (Auto) 0.4 K/mm3 (0.0-0.8) 09/01/20 08:53 Eos # (Auto) 0.1 K/mm3 (0.0-0.4) 09/01/20 08:53 Baso # (Auto) 0.0 K/mm3 (0.0-0.1) 09/01/20 08:53 Seg Neutrophils % 63.3 % (40.0-70.0) 09/01/20 08:53 Seg Neutrophils # 4.2 K/mm3 (1.8-7.7) 09/01/20 08:53 Sodium 139 mmol/L (137-145) 09/01/20 08:53 Potassium 3.7 mmol/L (3.6-5.0) 09/01/20 08:53 Chloride 101.1 mmol/L (98-107) 09/01/20 08:53 Carbon Dioxide 29 mmol/L (22-30) 09/01/20 08:53 Anion Gap 13 mmol/L 09/01/20 08:53 BUN 24 mg/dL (9-20) H 09/01/20 08:53 Creatinine 1.3 mg/dL (0.8-1.3) 09/01/20 08:53 Estimated GFR > 60 ml/min 09/01/20 08:53 BUN/Creatinine Ratio 18 % 09/01/20 08:53 Glucose 89 mg/dL (75-100) 09/01/20 08:53 Hemoglobin A1c 6.2 % (4-6) H 09/01/20 08:53 Calcium 9.5 mg/dL (8.4-10.2) 09/01/20 08:53 Total Bilirubin 0.40 mg/dL (0.1-1.2) 09/01/20 08:53 AST 21 units/L (5-40) 09/01/20 08:53 ALT 17 units/L (7-56) 09/01/20 08:53 Alkaline Phosphatase 70 units/L (35-129) 09/01/20 08:53 Total Protein 7.2 g/dL (6.3-8.2) 09/01/20 08:53 Albumin 4.1 g/dL (3.9-5) 09/01/20 08:53 Albumin/Globulin Ratio 1.3 % 09/01/20 08:53 Triglycerides 55 mg/dL (2-149) 09/01/20 08:53 Cholesterol 183 mg/dL (50-199) 09/01/20 08:53 LDL Cholesterol Direct 129 mg/dL (50-130) 09/01/20 08:53 HDL Cholesterol 56 mg/dL (40-59) 09/01/20 08:53 Cholesterol/HDL Ratio 3.26 % 09/01/20 08:53 TSH 1.400 mlU/mL (0.270-4.200) 09/01/20 08:53 Last Vital Signs Temp 97.9 F 09/02/20 20:04 Pulse 102 H 09/02/20 20:04 Resp 16 09/02/20 20:04 BP 97/65 09/02/20 20:04 Pulse Ox 98 09/02/20 20:04
[2020-09-03] MEDS: risperiDONE 1 MG TAB PO SCH ×3 (11:03→21:37)
[2020-09-03] MEDS: FLUoxetine 20 MG CAP PO SCH ×2 (11:04→15:02)
[2020-09-03] MEDS: DIVALPROEX DR 500 MG TAB PO SCH ×3 (11:04→21:37)
--- NOTE | 2020-09-03 15:28 | Progress Note ---
Assessment and Plan Assessment and plan: --History of schizoaffective disorder /bipolar disorder; Continue current psych medications Management as per psych --Suicidal ideation/thoughts; Management per psych --Hypotension; patient is not on any blood pressure medications Encourage plenty oral fluids, IV fluids if it can be given Consider midodrine 2.5 twice daily if no improvement --DVT prophylaxis; SCDs while resting --History of tobacco use; smoking cessation counseling done Nicotine patch as needed Patient does not have any medical history. Continue supportive care Closely monitor the patient and adjust the management as needed Call us with questions or concerns History Interval history: I have seen and examined the patient in psych unit today Patient says that he is not feeling well Blood pressures in the lower range We will hold antihypertensive medications Vital signs reviewed Hospitalist Physical - Constitutional Vitals: Temp Pulse Resp BP Pulse Ox 97.9 F 102 H 16 97/65 98 09/02/20 20:04 09/02/20 20:04 09/02/20 20:04 09/02/20 20:04 09/02/20 20:04 General appearance: Present: no acute distress, well-nourished - Neck Neck: Present: supple, normal ROM - Respiratory Respiratory effort: normal Respiratory: bilateral: diminished, negative: rales, rhonchi, wheezing - Cardiovascular Rhythm: regular Heart Sounds: Present: S1 & S2 - Extremities Extremities: no ischemia, No edema - Abdominal General gastrointestinal: soft, non-tender, non-distended, normal bowel sounds - Integumentary Integumentary: Present: clear, warm - Psychiatric Psychiatric: cooperative, depressed - Neurologic Neurologic: moves all extremities Results - Labs CBC & Chem 7: 09/01/20 08:53 09/01/20 08:53 Labs: Laboratory Last Values WBC 6.7 K/mm3 (4.5-11.0) 09/01/20 08:53 RBC 5.01 M/mm3 (3.65-5.03) 09/01/20 08:53 Hgb 14.3 gm/dl (11.8-15.2) 09/01/20 08:53 Hct 43.3 % (35.5-45.6) 09/01/20 08:53 MCV 87 fl (84-94) 09/01/20 08:53 MCH 29 pg (28-32) 09/01/20 08:53 MCHC 33 % (32-34) 09/01/20 08:53 RDW 14.7 % (13.2-15.2) 09/01/20 08:53 Plt Count 260 K/mm3 (140-440) 09/01/20 08:53 Lymph % (Auto) 29.7 % (13.4-35.0) 09/01/20 08:53 [place] % (Auto) 5.6 % (0.0-7.3) 09/01/20 08:53 Eos % (Auto) 0.9 % (0.0-4.3) 09/01/20 08:53 Baso % (Auto) 0.5 % (0.0-1.8) 09/01/20 08:53 Lymph # (Auto) 2.0 K/mm3 (1.2-5.4) 09/01/20 08:53 [place] # (Auto) 0.4 K/mm3 (0.0-0.8) 09/01/20 08:53 Eos # (Auto) 0.1 K/mm3 (0.0-0.4) 09/01/20 08:53 Baso # (Auto) 0.0 K/mm3 (0.0-0.1) 09/01/20 08:53 Seg Neutrophils % 63.3 % (40.0-70.0) 09/01/20 08:53 Seg Neutrophils # 4.2 K/mm3 (1.8-7.7) 09/01/20 08:53 Sodium 139 mmol/L (137-145) 09/01/20 08:53 Potassium 3.7 mmol/L (3.6-5.0) 09/01/20 08:53 Chloride 101.1 mmol/L (98-107) 09/01/20 08:53 Carbon Dioxide 29 mmol/L (22-30) 09/01/20 08:53 Anion Gap 13 mmol/L 09/01/20 08:53 BUN 24 mg/dL (9-20) H 09/01/20 08:53 Creatinine 1.3 mg/dL (0.8-1.3) 09/01/20 08:53 Estimated GFR > 60 ml/min 09/01/20 08:53 BUN/Creatinine Ratio 18 % 09/01/20 08:53 Glucose 89 mg/dL (75-100) 09/01/20 08:53 Hemoglobin A1c 6.2 % (4-6) H 09/01/20 08:53 Calcium 9.5 mg/dL (8.4-10.2) 09/01/20 08:53 Total Bilirubin 0.40 mg/dL (0.1-1.2) 09/01/20 08:53 AST 21 units/L (5-40) 09/01/20 08:53 ALT 17 units/L (7-56) 09/01/20 08:53 Alkaline Phosphatase 70 units/L (35-129) 09/01/20 08:53 Total Protein 7.2 g/dL (6.3-8.2) 09/01/20 08:53 Albumin 4.1 g/dL (3.9-5) 09/01/20 08:53 Albumin/Globulin Ratio 1.3 % 09/01/20 08:53 Triglycerides 55 mg/dL (2-149) 09/01/20 08:53 Cholesterol 183 mg/dL (50-199) 09/01/20 08:53 LDL Cholesterol Direct 129 mg/dL (50-130) 09/01/20 08:53 HDL Cholesterol 56 mg/dL (40-59) 09/01/20 08:53 Cholesterol/HDL Ratio 3.26 % 09/01/20 08:53 TSH 1.400 mlU/mL (0.270-4.200) 09/01/20 08:53 [place]/IV: Voiding Method Toilet Active Medications - Current Medications Current Medications: Generic Name Dose Route Start Last Admin Trade Name Junq PRN Reason Stop Dose Admin Divalproex Sodium 500 mg 09/02/20 10:00 09/03/20 15:[address] 500 Mg Tab PO 500 mg BID PAULETTE Administration Fluoxetine HCl 20 mg 09/01/20 10:00 09/03/20 15:02 Fluoxetine 20 Mg Cap PO 20 mg QDAY PAULETTE Administration Risperidone 2 mg 09/02/20 10:00 09/03/20 15:01 Risperidone 1 Mg Tab PO 2 mg BID PAULETTE Administration Trazodone HCl 50 mg 09/02/20 22:00 09/02/20 22:25 Trazodone 50 Mg Tab PO Not Given QHS PAULETTE
[2020-09-03] MEDS ORDERED: MIDODRINE 2.5 MG TAB PO PRN (15:37)
[2020-09-03] MEDS: traZODone 50 MG TAB PO SCH (21:37)
--- NOTE | 2020-09-04 08:09 | Progress Note ---
Subjective Date of service: 09/04/20 Principal diagnosis: schizophrenia Subjective Comment: Per nurse note: "pt is alert and oriented x3, calm and cooperative, able to make needs known, withdrawn to self, does not interact with peers, consumed 100% of snack, medication compliance, poor hygiene, pt encouraged to shower, pt stated that he will shower tomorrow morning, no distress noted, will continue to monitor for safety." The nurse caring for the patient today also states that he had initially refused his medications all day but decided to take them later. During my interview with the patient, he is lying down in bed awake. He has poor hygiene. He states he "feels bad." Asked the patient if he felt bad why did he refuse his medications. He says "I just can't." When asking the patient why, was he having any side effects when he takes it he replied "I feel bad when I take it. I feel bad when I don't." The patient did not elaborate on what "bad" meant. I asked the patient why was he not taking a shower, he replied "I just can't." The patient denies SI/HI or hallucinations of any kind. I informed the patient that if he is not willing to comply with treatment he would be discharge. He replied "Okay." REVIEW OF SYSTEMS Constitutional: Negative for weight loss ENT: Negative for stridor Respiratory: Negative for cough or hemoptysis All other systems reviewed and are negative MENTAL STATUS EXAMINATION General Appearance and Behavior: Age appropriate, poor hygiene, not wearing appropriate clothes, good eye contact, calm and cooperative with questioning. Cooperation: Participating but withdrawn and guarded Psychomotor Behavior: Psychomotor agitation Mood: "not good" Affect and affective range: euthymic Thought Process: Illogical, Thought Content: None Speech: normal tone and pace Suicidal Ideation: Denies Homicidal Ideation: Denies HIl Impulse Control: Limited Insight and Judgment: Limited insight and judgment Memory: Normal, Attention: Divided attention impaired Orientation: Alert, oriented Assessment and Plan (1) Schizoaffective disorder, bipolar type (F25.0) Current Visit: Yes Status: Acute Treatment Plan Patient's blood pressure is currently low, nurse aware to hold off statin psych medication to patient evaluated by hospital Patient admitted for inpatient psychiatric evaluation, medication adjustment and close monitoring The patient's behavior, mood, sleep and appetite will be closely monitored. Patient enrolled in individual and group therapeutic sessions and encouraged to attend. Patient provided with a safe and structured environment. Patient's physical health needs will be addressed by the Hospitalist. Hospitalist Consulted Labs including CBC, CMP, Lipid profile and Hemoglobin A1C levels ordered for baseline reference Valproic level 09/04 (not drawn as of yet) Social Assessment will be completed and the Search Lead will work with patient and family to ensure a suitable and safe disposition Medication adjustment will be made as clinically indicated No changes made today Usual Wellness Buddhism/Preservation: - Start Trazodone 50 mg po QHS & 50 mg po QHS PRN between 10 PM & 2 AM for insomnia - Start Melatonin 5 mg po QHS to promote circadian rhythm - Start [place]-3 for brain health, reduce impulsivity, and as adjunctive treatment for mood disorder, continue upon discharge given overall benefits. - Start B1 prophylaxis with 200 mg po for 5 days The patient agreed on the treatment plan, understood the risk, benefit, alternative treatment, potential consequence of no treatment, and gave informed consent. Estimated days: 2 Post hospital care: primary care provider, psychiatric provider Medications and Allergies Allergies Allergy/AdvReac Type Severity Reaction Status Date / Time No Known Allergies Allergy Unverified 06/06/20 16:55 Home Medications Medication Instructions Recorded Confirmed Last Taken Type Divalproex Dr [Aviva Conti] 500 mg PO BID #60 tablet 06/16/20 08/31/20 Unknown Rx FLUoxetine [PROzac] 40 mg PO QDAY #60 capsule 06/16/20 08/31/20 Unknown Rx Melatonin [Melatonin 5MG TAB] 5 mg PO QHS #30 tablet 06/16/20 08/31/20 Unknown Rx traZODone [Desyrel] 50 mg PO QHS #30 tablet 06/16/20 08/31/20 Unknown Rx risperiDONE [RisperDAL] 2 mg PO BID 08/31/20 08/31/20 Unknown History Active Meds: Active Medications Divalproex Sodium (Divalproex Dr 500 Mg Tab) 500 mg PO BID COUNT INCLUDES THE [facility] Last Admin: 09/03/20 21:37 Dose: 500 mg Documented by: Fluoxetine HCl (Fluoxetine 20 Mg Cap) 20 mg PO QDAY COUNT INCLUDES THE [facility] Last Admin: 09/03/20 15:02 Dose: 20 mg Documented by: Midodrine (Midodrine 2.5 Mg Tab) 2.5 mg PO BID PRN PRN Reason: Hypotension Risperidone (Risperidone 1 Mg Tab) 2 mg PO BID COUNT INCLUDES THE [facility] Last Admin: 09/03/20 21:37 Dose: 2 mg Documented by: Trazodone HCl (Trazodone 50 Mg Tab) 50 mg PO QHS COUNT INCLUDES THE [facility] Last Admin: 09/03/20 21:37 Dose: 50 mg Documented by: Results - Results Labs/Vitals: Laboratory Last Values WBC 6.7 K/mm3 (4.5-11.0) 09/01/20 08:53 RBC 5.01 M/mm3 (3.65-5.03) 09/01/20 08:53 Hgb 14.3 gm/dl (11.8-15.2) 09/01/20 08:53 Hct 43.3 % (35.5-45.6) 09/01/20 08:53 MCV 87 fl (84-94) 09/01/20 08:53 MCH 29 pg (28-32) 09/01/20 08:53 MCHC 33 % (32-34) 09/01/20 08:53 RDW 14.7 % (13.2-15.2) 09/01/20 08:53 Plt Count 260 K/mm3 (140-440) 09/01/20 08:53 Lymph % (Auto) 29.7 % (13.4-35.0) 09/01/20 08:53 [place] % (Auto) 5.6 % (0.0-7.3) 09/01/20 08:53 Eos % (Auto) 0.9 % (0.0-4.3) 09/01/20 08:53 Baso % (Auto) 0.5 % (0.0-1.8) 09/01/20 08:53 Lymph # (Auto) 2.0 K/mm3 (1.2-5.4) 09/01/20 08:53 [place] # (Auto) 0.4 K/mm3 (0.0-0.8) 09/01/20 08:53 Eos # (Auto) 0.1 K/mm3 (0.0-0.4) 09/01/20 08:53 Baso # (Auto) 0.0 K/mm3 (0.0-0.1) 09/01/20 08:53 Seg Neutrophils % 63.3 % (40.0-70.0) 09/01/20 08:53 Seg Neutrophils # 4.2 K/mm3 (1.8-7.7) 09/01/20 08:53 Sodium 139 mmol/L (137-145) 09/01/20 08:53 Potassium 3.7 mmol/L (3.6-5.0) 09/01/20 08:53 Chloride 101.1 mmol/L (98-107) 09/01/20 08:53 Carbon Dioxide 29 mmol/L (22-30) 09/01/20 08:53 Anion Gap 13 mmol/L 09/01/20 08:53 BUN 24 mg/dL (9-20) H 09/01/20 08:53 Creatinine 1.3 mg/dL (0.8-1.3) 09/01/20 08:53 Estimated GFR > 60 ml/min 09/01/20 08:53 BUN/Creatinine Ratio 18 % 09/01/20 08:53 Glucose 89 mg/dL (75-100) 09/01/20 08:53 Hemoglobin A1c 6.2 % (4-6) H 09/01/20 08:53 Calcium 9.5 mg/dL (8.4-10.2) 09/01/20 08:53 Total Bilirubin 0.40 mg/dL (0.1-1.2) 09/01/20 08:53 AST 21 units/L (5-40) 09/01/20 08:53 ALT 17 units/L (7-56) 09/01/20 08:53 Alkaline Phosphatase 70 units/L (35-129) 09/01/20 08:53 Total Protein 7.2 g/dL (6.3-8.2) 09/01/20 08:53 Albumin 4.1 g/dL (3.9-5) 09/01/20 08:53 Albumin/Globulin Ratio 1.3 % 09/01/20 08:53 Triglycerides 55 mg/dL (2-149) 09/01/20 08:53 Cholesterol 183 mg/dL (50-199) 09/01/20 08:53 LDL Cholesterol Direct 129 mg/dL (50-130) 09/01/20 08:53 HDL Cholesterol 56 mg/dL (40-59) 09/01/20 08:53 Cholesterol/HDL Ratio 3.26 % 09/01/20 08:53 TSH 1.400 mlU/mL (0.270-4.200) 09/01/20 08:53 Last Vital Signs Temp 98.0 F 09/03/20 19:00 Pulse 75 09/03/20 19:00 Resp 16 09/03/20 19:00 BP 97/54 09/03/20 19:00 Pulse Ox 98 09/03/20 19:00
--- NOTE | 2020-09-04 09:01 | Progress Note ---
Assessment and Plan Assessment and plan: --History of schizoaffective disorder /bipolar disorder; Continue current psych medications Management as per psych --Suicidal ideation/thoughts; She denies suicidal thoughts or ideations Management per psych --Hypotension; blood pressures slightly better patient is not on any blood pressure medications Encourage plenty oral fluids, IV fluids if it can be given Consider midodrine 2.5 twice daily if no improvement --DVT prophylaxis; SCDs while resting --History of tobacco use; smoking cessation counseling done Nicotine patch as needed Patient does not have any medical history. Continue supportive care Closely monitor the patient and adjust the management as needed Call us with questions or concerns History Interval history: I have seen and examined the patient in activities room Patient is very upset that he was not given the crackers and peanut butter Nurse told him that his lunch will be ready in a few minutes, however he was upset When I talked to him he says he is okay No new complaints Vital signs noted Hospitalist Physical - Constitutional Vitals: Temp Pulse Resp BP Pulse Ox 98.0 F 75 16 97/54 98 09/03/20 19:00 09/03/20 19:00 09/03/20 19:00 09/03/20 19:00 09/03/20 19:00 General appearance: Present: no acute distress, well-nourished - Neck Neck: Present: supple, normal ROM - Respiratory Respiratory effort: normal Respiratory: negative: rales, rhonchi, wheezing - Cardiovascular Rhythm: regular Heart Sounds: Present: S1 & S2 - Extremities Extremities: no ischemia, No edema - Abdominal General gastrointestinal: soft, non-tender, non-distended, normal bowel sounds - Integumentary Integumentary: Present: clear, warm - Psychiatric Psychiatric: appropriate mood/affect, cooperative, other (Angry that he was not given crackers) - Neurologic Neurologic: CNII-XII intact, moves all extremities Results - Labs CBC & Chem 7: 09/01/20 08:53 09/01/20 08:53 Labs: Laboratory Last Values WBC 6.7 K/mm3 (4.5-11.0) 09/01/20 08:53 RBC 5.01 M/mm3 (3.65-5.03) 09/01/20 08:53 Hgb 14.3 gm/dl (11.8-15.2) 09/01/20 08:53 Hct 43.3 % (35.5-45.6) 09/01/20 08:53 MCV 87 fl (84-94) 09/01/20 08:53 MCH 29 pg (28-32) 09/01/20 08:53 MCHC 33 % (32-34) 09/01/20 08:53 RDW 14.7 % (13.2-15.2) 09/01/20 08:53 Plt Count 260 K/mm3 (140-440) 09/01/20 08:53 Lymph % (Auto) 29.7 % (13.4-35.0) 09/01/20 08:53 [place] % (Auto) 5.6 % (0.0-7.3) 09/01/20 08:53 Eos % (Auto) 0.9 % (0.0-4.3) 09/01/20 08:53 Baso % (Auto) 0.5 % (0.0-1.8) 09/01/20 08:53 Lymph # (Auto) 2.0 K/mm3 (1.2-5.4) 09/01/20 08:53 [place] # (Auto) 0.4 K/mm3 (0.0-0.8) 09/01/20 08:53 Eos # (Auto) 0.1 K/mm3 (0.0-0.4) 09/01/20 08:53 Baso # (Auto) 0.0 K/mm3 (0.0-0.1) 09/01/20 08:53 Seg Neutrophils % 63.3 % (40.0-70.0) 09/01/20 08:53 Seg Neutrophils # 4.2 K/mm3 (1.8-7.7) 09/01/20 08:53 Sodium 139 mmol/L (137-145) 09/01/20 08:53 Potassium 3.7 mmol/L (3.6-5.0) 09/01/20 08:53 Chloride 101.1 mmol/L (98-107) 09/01/20 08:53 Carbon Dioxide 29 mmol/L (22-30) 09/01/20 08:53 Anion Gap 13 mmol/L 09/01/20 08:53 BUN 24 mg/dL (9-20) H 09/01/20 08:53 Creatinine 1.3 mg/dL (0.8-1.3) 09/01/20 08:53 Estimated GFR > 60 ml/min 09/01/20 08:53 BUN/Creatinine Ratio 18 % 09/01/20 08:53 Glucose 89 mg/dL (75-100) 09/01/20 08:53 Hemoglobin A1c 6.2 % (4-6) H 09/01/20 08:53 Calcium 9.5 mg/dL (8.4-10.2) 09/01/20 08:53 Total Bilirubin 0.40 mg/dL (0.1-1.2) 09/01/20 08:53 AST 21 units/L (5-40) 09/01/20 08:53 ALT 17 units/L (7-56) 09/01/20 08:53 Alkaline Phosphatase 70 units/L (35-129) 09/01/20 08:53 Total Protein 7.2 g/dL (6.3-8.2) 09/01/20 08:53 Albumin 4.1 g/dL (3.9-5) 09/01/20 08:53 Albumin/Globulin Ratio 1.3 % 09/01/20 08:53 Triglycerides 55 mg/dL (2-149) 09/01/20 08:53 Cholesterol 183 mg/dL (50-199) 09/01/20 08:53 LDL Cholesterol Direct 129 mg/dL (50-130) 09/01/20 08:53 HDL Cholesterol 56 mg/dL (40-59) 09/01/20 08:53 Cholesterol/HDL Ratio 3.26 % 09/01/20 08:53 TSH 1.400 mlU/mL (0.270-4.200) 09/01/20 08:53 [place]/IV: Voiding Method Toilet Active Medications - Current Medications Current Medications: Generic Name Dose Route Start Last Admin Trade Name Freq PRN Reason Stop Dose Admin Divalproex Sodium 500 mg 09/02/20 10:00 09/03/20 21:[address] 500 Mg Tab PO 500 mg BID PAULETTE Administration Fluoxetine HCl 20 mg 09/01/20 10:00 09/03/20 15:02 Fluoxetine 20 Mg Cap PO 20 mg QDAY PAULETTE Administration Midodrine 2.5 mg 09/03/20 15:37 Midodrine 2.5 Mg Tab PO BID PRN Hypotension Risperidone 2 mg 09/02/20 10:00 09/03/20 21:37 Risperidone 1 Mg Tab PO 2 mg BID PAULETTE Administration Trazodone HCl 50 mg 09/02/20 22:00 09/03/20 21:37 Trazodone 50 Mg Tab PO 50 mg QHS PAULETTE Administration
[2020-09-04] MEDS: DIVALPROEX DR 500 MG TAB PO SCH ×2 (10:02→21:33)
[2020-09-04] MEDS: risperiDONE 1 MG TAB PO SCH ×2 (10:03→21:33)
[2020-09-04] MEDS: FLUoxetine 20 MG CAP PO SCH (10:03)
[2020-09-04] MEDS: traZODone 50 MG TAB PO SCH (21:33)
--- NOTE | 2020-09-05 09:25 | Progress Note ---
Assessment and Plan Assessment and plan: --Suicidal ideation/thoughts; patient denies Patient denies suicidal thoughts or ideations Management per psych --History of schizoaffective disorder /bipolar disorder; Continue current psych medications Management as per psych --Hypotension; blood pressures slightly better patient is not on any blood pressure medications Encourage plenty oral fluids, IV fluids if it can be given Consider midodrine 2.5 twice daily if no improvement --DVT prophylaxis; SCDs while resting --History of tobacco use; smoking cessation counseling done Nicotine patch as needed Patient does not have any medical history. Continue supportive care Closely monitor the patient and adjust the management as needed Plan of care reviewed with the patient's nurse History Interval history: I have seen and examined him in the hallway Patient was agitated because he is not getting the maulik crackers Was getting angry on the nurse But not aggressive or combative Patient states he feels better Vital signs Hospitalist Physical - Constitutional Vitals: Temp Pulse Resp BP Pulse Ox 97.5 F L 73 16 107/72 98 09/04/20 20:00 09/04/20 20:00 09/04/20 20:00 09/04/20 20:00 09/04/20 20:00 General appearance: Present: no acute distress, well-nourished - EENT Eyes: Present: PERRL, EOM intact - Neck Neck: Present: supple, normal ROM - Respiratory Respiratory effort: normal Respiratory: bilateral: diminished, negative: rales, rhonchi, wheezing - Cardiovascular Rhythm: regular Heart Sounds: Present: S1 & S2 - Extremities Extremities: no ischemia, No edema - Abdominal General gastrointestinal: soft, non-tender, non-distended, normal bowel sounds - Integumentary Integumentary: Present: clear, warm - Psychiatric Psychiatric: appropriate mood/affect, cooperative, agitated (At times) - Neurologic Neurologic: moves all extremities Results - Labs CBC & Chem 7: 09/01/20 08:53 09/01/20 08:53 Labs: Laboratory Last Values WBC 6.7 K/mm3 (4.5-11.0) 09/01/20 08:53 RBC 5.01 M/mm3 (3.65-5.03) 09/01/20 08:53 Hgb 14.3 gm/dl (11.8-15.2) 09/01/20 08:53 Hct 43.3 % (35.5-45.6) 09/01/20 08:53 MCV 87 fl (84-94) 09/01/20 08:53 MCH 29 pg (28-32) 09/01/20 08:53 MCHC 33 % (32-34) 09/01/20 08:53 RDW 14.7 % (13.2-15.2) 09/01/20 08:53 Plt Count 260 K/mm3 (140-440) 09/01/20 08:53 Lymph % (Auto) 29.7 % (13.4-35.0) 09/01/20 08:53 [place] % (Auto) 5.6 % (0.0-7.3) 09/01/20 08:53 Eos % (Auto) 0.9 % (0.0-4.3) 09/01/20 08:53 Baso % (Auto) 0.5 % (0.0-1.8) 09/01/20 08:53 Lymph # (Auto) 2.0 K/mm3 (1.2-5.4) 09/01/20 08:53 [place] # (Auto) 0.4 K/mm3 (0.0-0.8) 09/01/20 08:53 Eos # (Auto) 0.1 K/mm3 (0.0-0.4) 09/01/20 08:53 Baso # (Auto) 0.0 K/mm3 (0.0-0.1) 09/01/20 08:53 Seg Neutrophils % 63.3 % (40.0-70.0) 09/01/20 08:53 Seg Neutrophils # 4.2 K/mm3 (1.8-7.7) 09/01/20 08:53 Sodium 139 mmol/L (137-145) 09/01/20 08:53 Potassium 3.7 mmol/L (3.6-5.0) 09/01/20 08:53 Chloride 101.1 mmol/L (98-107) 09/01/20 08:53 Carbon Dioxide 29 mmol/L (22-30) 09/01/20 08:53 Anion Gap 13 mmol/L 09/01/20 08:53 BUN 24 mg/dL (9-20) H 09/01/20 08:53 Creatinine 1.3 mg/dL (0.8-1.3) 09/01/20 08:53 Estimated GFR > 60 ml/min 09/01/20 08:53 BUN/Creatinine Ratio 18 % 09/01/20 08:53 Glucose 89 mg/dL (75-100) 09/01/20 08:53 Hemoglobin A1c 6.2 % (4-6) H 09/01/20 08:53 Calcium 9.5 mg/dL (8.4-10.2) 09/01/20 08:53 Total Bilirubin 0.40 mg/dL (0.1-1.2) 09/01/20 08:53 AST 21 units/L (5-40) 09/01/20 08:53 ALT 17 units/L (7-56) 09/01/20 08:53 Alkaline Phosphatase 70 units/L (35-129) 09/01/20 08:53 Total Protein 7.2 g/dL (6.3-8.2) 09/01/20 08:53 Albumin 4.1 g/dL (3.9-5) 09/01/20 08:53 Albumin/Globulin Ratio 1.3 % 09/01/20 08:53 Triglycerides 55 mg/dL (2-149) 09/01/20 08:53 Cholesterol 183 mg/dL (50-199) 09/01/20 08:53 LDL Cholesterol Direct 129 mg/dL (50-130) 09/01/20 08:53 HDL Cholesterol 56 mg/dL (40-59) 09/01/20 08:53 Cholesterol/HDL Ratio 3.26 % 09/01/20 08:53 TSH 1.400 mlU/mL (0.270-4.200) 09/01/20 08:53 Valproic Acid 75.2 ug/mL (50-100) 09/04/20 11:49 [place]/IV: Voiding Method Toilet Active Medications - Current Medications Current Medications: Generic Name Dose Route Start Last Admin Trade Name Freq PRN Reason Stop Dose Admin Divalproex Sodium 500 mg 09/02/20 10:00 09/04/20 21:[address] 500 Mg Tab PO 500 mg BID PAULETTE Administration Fluoxetine HCl 20 mg 09/01/20 10:00 09/04/20 10:03 Fluoxetine 20 Mg Cap PO 20 mg QDAY PAULETTE Administration Midodrine 2.5 mg 09/03/20 15:37 Midodrine 2.5 Mg Tab PO BID PRN Hypotension Risperidone 2 mg 09/02/20 10:00 09/04/20 21:33 Risperidone 1 Mg Tab PO 2 mg BID PAULETTE Administration Trazodone HCl 50 mg 09/02/20 22:00 09/04/20 21:33 Trazodone 50 Mg Tab PO 50 mg QHS PAULETTE Administration
--- NOTE | 2020-09-05 09:29 | Progress Note ---
Subjective Date of service: 09/05/20 Principal diagnosis: schizophrenia Subjective Comment: Per nurse caring for the patient today: States the patient only sleeps and asks for food. Has been calm, cooperative and compliant. During my interview with the patient, he is eating breakfast. He appears to have double portions, but the patient is asking for snacks. The patient states he feels better today. He denies SI/HI or hallucinations of any kind. After leaving the interview, the patient finds me in the [place] and asks me for some cookies and crackers. Reason for continued inpatient treatment: The patient has improved significantly and is likely at his baseline. Will plan for a safe discharge tomorrow. REVIEW OF SYSTEMS Constitutional: Negative for weight loss ENT: Negative for stridor Respiratory: Negative for cough or hemoptysis All other systems reviewed and are negative MENTAL STATUS EXAMINATION General Appearance and Behavior: Age appropriate, poor hygiene, not wearing appropriate clothes, good eye contact, calm and cooperative with questioning. Cooperation: Participating but withdrawn and guarded Psychomotor Behavior: Psychomotor agitation Mood: "not good" Affect and affective range: euthymic Thought Process: Illogical, Thought Content: None Speech: normal tone and pace Suicidal Ideation: Denies Homicidal Ideation: Denies HIl Impulse Control: Limited Insight and Judgment: Limited insight and judgment Memory: Normal, Attention: Divided attention impaired Orientation: Alert, oriented Assessment and Plan (1) Schizoaffective disorder, bipolar type (F25.0) Current Visit: Yes Status: Acute Treatment Plan Patient's blood pressure is currently low, nurse aware to hold off statin psych medication to patient evaluated by hospital Patient admitted for inpatient psychiatric evaluation, medication adjustment and close monitoring The patient's behavior, mood, sleep and appetite will be closely monitored. Patient enrolled in individual and group therapeutic sessions and encouraged to attend. Patient provided with a safe and structured environment. Patient's physical health needs will be addressed by the Hospitalist. Hospitalist Consulted Labs including CBC, CMP, Lipid profile and Hemoglobin A1C levels ordered for baseline reference Valproic level 75.2 Social Assessment will be completed and the Manager Lan will work with patient and family to ensure a suitable and safe disposition Medication adjustment will be made as clinically indicated No changes made today Usual Wellness Latter Day/Preservation: - Start Trazodone 50 mg po QHS & 50 mg po QHS PRN between 10 PM & 2 AM for insomnia - Start Melatonin 5 mg po QHS to promote circadian rhythm - Start [place]-3 for brain health, reduce impulsivity, and as adjunctive treatment for mood disorder, continue upon discharge given overall benefits. - Start B1 prophylaxis with 200 mg po for 5 days The patient agreed on the treatment plan, understood the risk, benefit, alternative treatment, potential consequence of no treatment, and gave informed consent. Estimated days: 2 Post hospital care: primary care provider, psychiatric provider Medications and Allergies Allergies Allergy/AdvReac Type Severity Reaction Status Date / Time No Known Allergies Allergy Unverified 06/06/20 16:55 Home Medications Medication Instructions Recorded Confirmed Last Taken Type Divalproex Dr [Depakote Dr] 500 mg PO BID #60 tablet 06/16/20 08/31/20 Unknown Rx FLUoxetine [PROzac] 40 mg PO QDAY #60 capsule 06/16/20 08/31/20 Unknown Rx Melatonin [Melatonin 5MG TAB] 5 mg PO QHS #30 tablet 06/16/20 08/31/20 Unknown Rx traZODone [Desyrel] 50 mg PO QHS #30 tablet 06/16/20 08/31/20 Unknown Rx risperiDONE [RisperDAL] 2 mg PO BID 08/31/20 08/31/20 Unknown History Active Meds: Active Medications Divalproex Sodium (Divalproex Dr 500 Mg Tab) 500 mg PO BID [facility] Last Admin: 09/04/20 21:33 Dose: 500 mg Documented by: Fluoxetine HCl (Fluoxetine 20 Mg Cap) 20 mg PO QDAY [facility] Last Admin: 09/04/20 10:03 Dose: 20 mg Documented by: Midodrine (Midodrine 2.5 Mg Tab) 2.5 mg PO BID PRN PRN Reason: Hypotension Risperidone (Risperidone 1 Mg Tab) 2 mg PO BID [facility] Last Admin: 09/04/20 21:33 Dose: 2 mg Documented by: Trazodone HCl (Trazodone 50 Mg Tab) 50 mg PO QHS [facility] Last Admin: 09/04/20 21:33 Dose: 50 mg Documented by: Results - Results Labs/Vitals: Laboratory Last Values WBC 6.7 K/mm3 (4.5-11.0) 09/01/20 08:53 RBC 5.01 M/mm3 (3.65-5.03) 09/01/20 08:53 Hgb 14.3 gm/dl (11.8-15.2) 09/01/20 08:53 Hct 43.3 % (35.5-45.6) 09/01/20 08:53 MCV 87 fl (84-94) 09/01/20 08:53 MCH 29 pg (28-32) 09/01/20 08:53 MCHC 33 % (32-34) 09/01/20 08:53 RDW 14.7 % (13.2-15.2) 09/01/20 08:53 Plt Count 260 K/mm3 (140-440) 09/01/20 08:53 Lymph % (Auto) 29.7 % (13.4-35.0) 09/01/20 08:53 [place] % (Auto) 5.6 % (0.0-7.3) 09/01/20 08:53 Eos % (Auto) 0.9 % (0.0-4.3) 09/01/20 08:53 Baso % (Auto) 0.5 % (0.0-1.8) 09/01/20 08:53 Lymph # (Auto) 2.0 K/mm3 (1.2-5.4) 09/01/20 08:53 [place] # (Auto) 0.4 K/mm3 (0.0-0.8) 09/01/20 08:53 Eos # (Auto) 0.1 K/mm3 (0.0-0.4) 09/01/20 08:53 Baso # (Auto) 0.0 K/mm3 (0.0-0.1) 09/01/20 08:53 Seg Neutrophils % 63.3 % (40.0-70.0) 09/01/20 08:53 Seg Neutrophils # 4.2 K/mm3 (1.8-7.7) 09/01/20 08:53 Sodium 139 mmol/L (137-145) 09/01/20 08:53 Potassium 3.7 mmol/L (3.6-5.0) 09/01/20 08:53 Chloride 101.1 mmol/L (98-107) 09/01/20 08:53 Carbon Dioxide 29 mmol/L (22-30) 09/01/20 08:53 Anion Gap 13 mmol/L 09/01/20 08:53 BUN 24 mg/dL (9-20) H 09/01/20 08:53 Creatinine 1.3 mg/dL (0.8-1.3) 09/01/20 08:53 Estimated GFR > 60 ml/min 09/01/20 08:53 BUN/Creatinine Ratio 18 % 09/01/20 08:53 Glucose 89 mg/dL (75-100) 09/01/20 08:53 Hemoglobin A1c 6.2 % (4-6) H 09/01/20 08:53 Calcium 9.5 mg/dL (8.4-10.2) 09/01/20 08:53 Total Bilirubin 0.40 mg/dL (0.1-1.2) 09/01/20 08:53 AST 21 units/L (5-40) 09/01/20 08:53 ALT 17 units/L (7-56) 09/01/20 08:53 Alkaline Phosphatase 70 units/L (35-129) 09/01/20 08:53 Total Protein 7.2 g/dL (6.3-8.2) 09/01/20 08:53 Albumin 4.1 g/dL (3.9-5) 09/01/20 08:53 Albumin/Globulin Ratio 1.3 % 09/01/20 08:53 Triglycerides 55 mg/dL (2-149) 09/01/20 08:53 Cholesterol 183 mg/dL (50-199) 09/01/20 08:53 LDL Cholesterol Direct 129 mg/dL (50-130) 09/01/20 08:53 HDL Cholesterol 56 mg/dL (40-59) 09/01/20 08:53 Cholesterol/HDL Ratio 3.26 % 09/01/20 08:53 TSH 1.400 mlU/mL (0.270-4.200) 09/01/20 08:53 Valproic Acid 75.2 ug/mL (50-100) 09/04/20 11:49 Last Vital Signs Temp 97.5 F L 09/04/20 20:00 Pulse 73 09/04/20 20:00 Resp 16 09/04/20 20:00 BP 107/72 09/04/20 20:00 Pulse Ox 98 09/04/20 20:00
[2020-09-05] MEDS: DIVALPROEX DR 500 MG TAB PO SCH ×3 (09:40→21:50)
[2020-09-05] MEDS: risperiDONE 1 MG TAB PO SCH ×2 (09:40→21:31)
[2020-09-05] MEDS: FLUoxetine 20 MG CAP PO SCH (09:43)
[2020-09-05] MEDS: traZODone 50 MG TAB PO SCH (21:31)
--- NOTE | 2020-09-06 08:38 | Discharge Summary ---
Providers - Providers Date of Admission: 08/31/20 14:34 Date of discharge: 09/06/20 Attending physician: EULOGIO MONDRAGON MD 08/31/20 10:51 Consult to Physician [CONS] Routine Comment: Consulting Provider: LU FRANCES Physician Instructions: Reason For Exam: Med managt [facility] Reason for admission: SI Admitting Diagnosis: F25.9 - SCHIZOAFFECTIVE DISORDER, UNSPECIFIED Hospital course: The patient was provided inpatient psychiatric treatment with safe and supportive care, medication adjustment, adverse effect monitoring, medical evaluations, medical treatments, assessment and psycho-education. The patient's mood, cognition, behavior, moral support are improved and stabilized. St the time of discharge, the patient had no endangering behavior and no debilitating adverse effects. The patient agreed on potential consequences of no treatment and gave informed consent. Disposition: - TO HOME OR SELFCARE Time spent for discharge: 38 Allergies/Adverse Reactions: Allergies No Known Allergies Allergy (Unverified 06/06/20 16:55) Vital Signs: Last Vital Signs Temp 98.1 F 09/05/20 19:49 Pulse 97 H 09/05/20 19:49 Resp 18 09/05/20 19:49 BP 100/73 09/05/20 19:49 Pulse Ox 99 09/05/20 19:49 Last Lab: Laboratory Last Values WBC 6.7 K/mm3 (4.5-11.0) 09/01/20 08:53 RBC 5.01 M/mm3 (3.65-5.03) 09/01/20 08:53 Hgb 14.3 gm/dl (11.8-15.2) 09/01/20 08:53 Hct 43.3 % (35.5-45.6) 09/01/20 08:53 MCV 87 fl (84-94) 09/01/20 08:53 MCH 29 pg (28-32) 09/01/20 08:53 MCHC 33 % (32-34) 09/01/20 08:53 RDW 14.7 % (13.2-15.2) 09/01/20 08:53 Plt Count 260 K/mm3 (140-440) 09/01/20 08:53 Lymph % (Auto) 29.7 % (13.4-35.0) 09/01/20 08:53 [place] % (Auto) 5.6 % (0.0-7.3) 09/01/20 08:53 Eos % (Auto) 0.9 % (0.0-4.3) 09/01/20 08:53 Baso % (Auto) 0.5 % (0.0-1.8) 09/01/20 08:53 Lymph # (Auto) 2.0 K/mm3 (1.2-5.4) 09/01/20 08:53 [place] # (Auto) 0.4 K/mm3 (0.0-0.8) 09/01/20 08:53 Eos # (Auto) 0.1 K/mm3 (0.0-0.4) 09/01/20 08:53 Baso # (Auto) 0.0 K/mm3 (0.0-0.1) 09/01/20 08:53 Seg Neutrophils % 63.3 % (40.0-70.0) 09/01/20 08:53 Seg Neutrophils # 4.2 K/mm3 (1.8-7.7) 09/01/20 08:53 Sodium 139 mmol/L (137-145) 09/01/20 08:53 Potassium 3.7 mmol/L (3.6-5.0) 09/01/20 08:53 Chloride 101.1 mmol/L (98-107) 09/01/20 08:53 Carbon Dioxide 29 mmol/L (22-30) 09/01/20 08:53 Anion Gap 13 mmol/L 09/01/20 08:53 BUN 24 mg/dL (9-20) H 09/01/20 08:53 Creatinine 1.3 mg/dL (0.8-1.3) 09/01/20 08:53 Estimated GFR > 60 ml/min 09/01/20 08:53 BUN/Creatinine Ratio 18 % 09/01/20 08:53 Glucose 89 mg/dL (75-100) 09/01/20 08:53 Hemoglobin A1c 6.2 % (4-6) H 09/01/20 08:53 Calcium 9.5 mg/dL (8.4-10.2) 09/01/20 08:53 Total Bilirubin 0.40 mg/dL (0.1-1.2) 09/01/20 08:53 AST 21 units/L (5-40) 09/01/20 08:53 ALT 17 units/L (7-56) 09/01/20 08:53 Alkaline Phosphatase 70 units/L (35-129) 09/01/20 08:53 Total Protein 7.2 g/dL (6.3-8.2) 09/01/20 08:53 Albumin 4.1 g/dL (3.9-5) 09/01/20 08:53 Albumin/Globulin Ratio 1.3 % 09/01/20 08:53 Triglycerides 55 mg/dL (2-149) 09/01/20 08:53 Cholesterol 183 mg/dL (50-199) 09/01/20 08:53 LDL Cholesterol Direct 129 mg/dL (50-130) 09/01/20 08:53 HDL Cholesterol 56 mg/dL (40-59) 09/01/20 08:53 Cholesterol/HDL Ratio 3.26 % 09/01/20 08:53 TSH 1.400 mlU/mL (0.270-4.200) 09/01/20 08:53 Valproic Acid 75.2 ug/mL (50-100) 09/04/20 11:49 Core Measure Documentation - Palliative Care Palliative Care/ Comfort Measures: Not Applicable - Core Measures Any of the following diagnoses?: none Exam - Constitutional Vitals: Temp Pulse Resp BP Pulse Ox 98.1 F 97 H 18 100/73 99 09/05/20 19:49 09/05/20 19:49 09/05/20 19:49 09/05/20 19:49 09/05/20 19:49 General appearance: Present: no acute distress - EENT Eyes: Present: PERRL, EOM intact ENT: hearing intact, clear oral mucosa - Neck Neck: Present: supple, normal ROM - Respiratory Respiratory effort: normal Plan Activity: advance as tolerated Weight Bearing Status: Weight Bear as Tolerated Care Plan Goals: Maintain good and stable mental health Plan of Treatment: The patient should be compliant with medications, not to use drugs, and not to drink alcohol. The patient understands that if suicidal ideas, homicidal ideas or any endangering feeling arise, the patient should seek assistance including, but not limited to crisis hotline, and emergency room. Assessment: Schizophrenia Follow up with: RAFIA ELIZABETH MD [Primary Care Provider] - 7 Days Prescriptions: traZODone [Desyrel] 50 mg PO QHS #30 tablet Melatonin [Melatonin 5MG TAB] 5 mg PO QHS #30 tablet Divalproex [Aviva Conti] 500 mg PO BID #60 tablet FLUoxetine [PROzac] 20 mg PO QDAY #30 capsule risperiDONE [RisperDAL] 2 mg PO BID #60 tablet risperiDONE [RisperDAL] 2 mg PO BID 30 Days
[2020-09-06 08:53] VITALS: BP 103/74
[2020-09-06] MEDS: DIVALPROEX DR 500 MG TAB PO SCH (09:34)
[2020-09-06] MEDS: risperiDONE 1 MG TAB PO SCH (09:34)
[2020-09-06] MEDS: FLUoxetine 20 MG CAP PO SCH (09:34)
--- NOTE | 2020-09-06 20:07 | Progress Note ---
Assessment and Plan - Patient Problems (1) Schizoaffective disorder, bipolar type Status: Acute Plan to address problem: continue medical management, supportive care. History Interval history: 55 YO Male with Schizophrenia, Bipolar Disorder admitted to [facility] psych unit for psychiatric stabilization. No reported nursing events. Pt denies pain. Hospitalist Physical - Constitutional Vitals: Temp Pulse Resp BP Pulse Ox 97.7 F 98 H 18 103/74 99 09/06/20 08:43 09/06/20 08:43 09/06/20 08:43 09/06/20 08:43 09/06/20 08:43 General appearance: Present: no acute distress - EENT Eyes: Present: PERRL, EOM intact ENT: hearing intact - Neck Neck: Present: supple - Respiratory Respiratory effort: normal Respiratory: bilateral: CTA - Cardiovascular Rhythm: regular Heart Sounds: Present: S1 & S2 Peripheral Pulses: within normal limits - Abdominal General gastrointestinal: soft, non-tender, non-distended - Integumentary Integumentary: Present: clear, dry - Psychiatric Psychiatric: cooperative - Neurologic Neurologic: CNII-XII intact Results - Labs CBC & Chem 7: 09/01/20 08:53 09/01/20 08:53 Labs: Laboratory Last Values WBC 6.7 K/mm3 (4.5-11.0) 09/01/20 08:53 RBC 5.01 M/mm3 (3.65-5.03) 09/01/20 08:53 Hgb 14.3 gm/dl (11.8-15.2) 09/01/20 08:53 Hct 43.3 % (35.5-45.6) 09/01/20 08:53 MCV 87 fl (84-94) 09/01/20 08:53 MCH 29 pg (28-32) 09/01/20 08:53 MCHC 33 % (32-34) 09/01/20 08:53 RDW 14.7 % (13.2-15.2) 09/01/20 08:53 Plt Count 260 K/mm3 (140-440) 09/01/20 08:53 Lymph % (Auto) 29.7 % (13.4-35.0) 09/01/20 08:53 [place] % (Auto) 5.6 % (0.0-7.3) 09/01/20 08:53 Eos % (Auto) 0.9 % (0.0-4.3) 09/01/20 08:53 Baso % (Auto) 0.5 % (0.0-1.8) 09/01/20 08:53 Lymph # (Auto) 2.0 K/mm3 (1.2-5.4) 09/01/20 08:53 [place] # (Auto) 0.4 K/mm3 (0.0-0.8) 09/01/20 08:53 Eos # (Auto) 0.1 K/mm3 (0.0-0.4) 09/01/20 08:53 Baso # (Auto) 0.0 K/mm3 (0.0-0.1) 09/01/20 08:53 Seg Neutrophils % 63.3 % (40.0-70.0) 09/01/20 08:53 Seg Neutrophils # 4.2 K/mm3 (1.8-7.7) 09/01/20 08:53 Sodium 139 mmol/L (137-145) 09/01/20 08:53 Potassium 3.7 mmol/L (3.6-5.0) 09/01/20 08:53 Chloride 101.1 mmol/L (98-107) 09/01/20 08:53 Carbon Dioxide 29 mmol/L (22-30) 09/01/20 08:53 Anion Gap 13 mmol/L 09/01/20 08:53 BUN 24 mg/dL (9-20) H 09/01/20 08:53 Creatinine 1.3 mg/dL (0.8-1.3) 09/01/20 08:53 Estimated GFR > 60 ml/min 09/01/20 08:53 BUN/Creatinine Ratio 18 % 09/01/20 08:53 Glucose 89 mg/dL (75-100) 09/01/20 08:53 Hemoglobin A1c 6.2 % (4-6) H 09/01/20 08:53 Calcium 9.5 mg/dL (8.4-10.2) 09/01/20 08:53 Total Bilirubin 0.40 mg/dL (0.1-1.2) 09/01/20 08:53 AST 21 units/L (5-40) 09/01/20 08:53 ALT 17 units/L (7-56) 09/01/20 08:53 Alkaline Phosphatase 70 units/L (35-129) 09/01/20 08:53 Total Protein 7.2 g/dL (6.3-8.2) 09/01/20 08:53 Albumin 4.1 g/dL (3.9-5) 09/01/20 08:53 Albumin/Globulin Ratio 1.3 % 09/01/20 08:53 Triglycerides 55 mg/dL (2-149) 09/01/20 08:53 Cholesterol 183 mg/dL (50-199) 09/01/20 08:53 LDL Cholesterol Direct 129 mg/dL (50-130) 09/01/20 08:53 HDL Cholesterol 56 mg/dL (40-59) 09/01/20 08:53 Cholesterol/HDL Ratio 3.26 % 09/01/20 08:53 TSH 1.400 mlU/mL (0.270-4.200) 09/01/20 08:53 Valproic Acid 75.2 ug/mL (50-100) 09/04/20 11:49 [place]/IV: Voiding Method Toilet
== END 2020-09-06 11:15 | disposition home or self-care (01) | DRG 885 ==
LOC: 3A 07:42 → UNDOADMIN 07:42 → 5A 14:34
PROVIDERS: ADMIT Psychiatry & Neurology Psychiatry; ATTEND Psychiatry & Neurology Psychiatry
DX: F25.0 Schizoaffective disorder, bipolar type (principal); R45.851 Suicidal ideations; F17.200 Nicotine dependence, unspecified, uncomplicated; I95.9 Hypotension, unspecified; Z79.899 Other long term (current) drug therapy; Z71.6 Tobacco abuse counseling
CPT/HCPCS: 36415; 80053; 80061; 80164; 83036; 84443; 85025; G0378